=== PATIENT | female | born 1995 | race Caucasian/White ===

== ENCOUNTER 2021-01-16 10:30 | Emergency (ER) | payer BC, SELFPAY ==
[2021-01-16 10:37] VITALS: BP 120/71; PULSE 70; RESP 16; TEMP 36.5; O2SAT 100
--- NOTE | 2021-01-16 10:39 | ED.GENADULT ---
HPI - General Adult General Chief complaint: Urogenital-Female Stated complaint: pos yeast infection/anal itching Time Seen by Provider: 01/16/21 10:39 Source: patient Mode of arrival: ambulatory Limitations: no limitations History of Present Illness HPI narrative: 25-year-old female patient presents to the [facility] with complaints of vaginal and anal itching for the past 2 days. Patient states about 4 days she had some issues with diarrhea and started having anal itching after the diarrhea had resolved. Patient states that she is now having some vaginal itching along with the anal itching. Patient denies taking thing for her symptoms. Patient states she also noted a white discharge from the vaginal area today. Patient states that she is and in a monogamous relationship and has no concerns for STDs. Denies any pain with urination. Patient states she is currently on control and her last period was January 09. Related Data Home Medications Medication Instructions Recorded Confirmed norgestrel-ethinyl estradiol 1 tablet PO DAILY 01/16/21 01/16/21 [Lo-Ovral (28)] Allergies Allergy/AdvReac Type Severity Reaction Status Date / Time No Known Allergies Allergy Verified 01/16/21 10:45 Review of Systems Review of Systems: Narrative: CONSTITUTIONAL: Denies fever, chills, or sweats. EYES: Denies visual changes, redness, or discharge. ENT: Denies rhinorrhea, congestion, sore throat, or otalgia. CARDIOVASCULAR: Denies chest pain, palpitations, or edema. RESPIRATORY: Denies cough or dyspnea. GASTROINTESTINAL: Denies abdominal pain, nausea, vomiting, or diarrhea. GENITOURINARY: Denies dysuria or hematuria. SKIN: Denies rash positive vaginal and anal itching x2 days. MUSCULOSKELETAL: Denies back pain, joint pain, or myalgia. NEUROLOGIC: Denies headache, numbness, or weakness. PSYCHIATRIC: Denies anxiety or depression. PMFSH Social History Social History Gender identity (if verbalized by the patient): Female Comments At the time of my signature I agree with nursing past medical history, surgical, social, and family history. There is no relevant family history pertinent to the presenting complaint. Exam Narrative: Exam Narrative: GENERAL: Well-appearing, well-nourished, and in no acute distress. HEAD: Normocephalic, atraumatic. EYES: PERRLA and EOMI. ENT: Nares clear, no rhinorrhea or epistaxis. Mucous membranes moist. NECK: Supple. No lymphadenopathy CHEST: Clear to auscultation. No respiratory distress. HEART: Regular rate and rhythm. No murmur heard. Normal peripheral pulses. ABDOMEN: Soft, nontender, nondistended, normal active bowel sounds. No CVA tenderness on percussion. EXTREMITIES: Normal range of motion. No edema. SKIN: Warm, dry, no rash. NEURO: No focal deficits. Alert and oriented x3. Course Vital Signs Vital signs: Vital Signs Temperature 36.5 C 01/16/21 10:37 Pulse Rate 70 01/16/21 10:37 Respiratory Rate 16 01/16/21 10:37 Blood Pressure 120/71 01/16/21 10:37 Pulse Oximetry 100 01/16/21 10:37 Temperature 36.5 C 01/16/21 10:37 Pulse Rate 70 01/16/21 10:37 Respiratory Rate 16 01/16/21 10:37 Blood Pressure 120/71 01/16/21 10:37 Pulse Oximetry 100 01/16/21 10:37 Vital signs reviewed Medical Decision Making Differential Diagnosis Differential Diagnosis: Differential diagnosis: Uncomplicated lower UTI, uncomplicated UTI, pyelonephritis gonorrhea, chlamydia, Trichomonas, bacterial vaginosis, herpes, HIV, yeast infection, urinary tract infection. Cussed with patient we will go ahead and get a urine and check her urine for as well as a UTI. Discussed with her that based on her complaints I think this is most likely a fungal infection of the anus and vaginal area most likely caused by the diarrhea in which we can treat with oral antifungal. Patient verbalized understanding of this. Discussed kathy
== END 2021-01-16 11:05 | disposition home or self-care (01) ==
PROVIDERS: Emergency Provider Nurse Practitioner Family
DX: B37.3 Candidiasis of vulva and vagina (principal); B37.89 Other sites of candidiasis
CPT/HCPCS: 81003; 81025; 99213; G0463

== ENCOUNTER 2021-01-18 08:23 | Emergency (ER) | payer BC, SELFPAY ==
[2021-01-18 08:31] VITALS: BP 142/91; PULSE 85; RESP 20; TEMP 37.4; O2SAT 100
--- NOTE | 2021-01-18 08:57 | ED.SKABFB ---
HPI - Skin/Abscess/Foreign Bdy General Chief complaint: Skin/Abscess/Foreign Body Stated complaint: POSSIBLE ALLERGIC REACTION Source: patient Mode of arrival: ambulatory Limitations: no limitations History of Present Illness HPI narrative: Patient is a 25 year old female who presents complaining of possible allergic reaction to medication. Patient reports that she was seen and treated here on Saturday for a yeast infection . Patient reports taking Diflucan and using clotrimazole cream topically. She reports increased swelling and itching to vaginal area. She reports generalized pruritic rash with increased edema and erythema to face. She reports taking Benadryl last pm with moderate relief. Patient also reports possible exposure to poison luna over the weekend while golfing but reports she did not touch it . MD complaint: rash Related Data Home Medications Medication Instructions Recorded Confirmed norgestrel-ethinyl estradiol 1 tablet PO DAILY 01/16/21 01/16/21 [Lo-Ovral (28)] Allergies Allergy/AdvReac Type Severity Reaction Status Date / Time No Known Allergies Allergy Verified 01/16/21 10:45 Review of Systems Review of Systems: Narrative: CONSTITUTIONAL: Denies fever, chills, or sweats. EYES: Denies visual changes, redness, or discharge. ENT: Denies rhinorrhea, congestion, sore throat, or otalgia. CARDIOVASCULAR: Denies chest pain, palpitations, or edema. RESPIRATORY: Denies cough or dyspnea. GASTROINTESTINAL: Denies abdominal pain, nausea, vomiting, or diarrhea. GENITOURINARY: Denies dysuria or hematuria. SKIN: Reports rash or itching. MUSCULOSKELETAL: Denies back pain, joint pain, or myalgia. NEUROLOGIC: Denies headache, numbness, dizziness, or weakness. PSYCHIATRIC: Denies anxiety or depression. [facility] Past Medical History Medical History (Updated 01/18/21 @ 09:50 by VENTURA Mi) No significant past medical history Surgical History Surgical History (Updated 01/18/21 @ 09:50 by VENTURA Mi) No significant past surgical history Family History Family History (Updated 01/18/21 @ 09:51 by VENTURA Mi) Other No significant family history Social History Social History (Updated 01/18/21 @ 09:51 by VENTURA Mi) Smoking status: Never smoker Alcohol intake: current Alcohol use details: Occasional Substance use: never Living arrangements: with family Occupation/Education: occupation Gender identity (if verbalized by the patient): Female Comments At the time of signature, I have reviewed and agree with nursing past medical, surgical, social, and family history unless otherwise noted. Please see nursing chart for further information. There is no relevant family history pertinent to the presenting complaint. Exam Narrative: Exam Narrative: GENERAL: Well-appearing, well-nourished, and in no acute distress. HEAD: Normocephalic, atraumatic. EYES: EOMI. No redness or drainage. Conjunctiva are normal. ENT: Mucous membranes pink and moist. Throat normal. Uvula midline. NECK: AROM. Supple. No lymphadenopathy. CHEST: No respiratory distress. Clear to auscultation. HEART: Regular rate and rhythm. EXTREMITIES: Normal range of motion. SKIN: Erythema and edema noted to the face, urticaria to extremities NEURO: No focal deficits. Alert and oriented x3. Gait steady. PSYCH: Normal affect. No signs of depression or anxiety. Course Vital Signs Vital signs: Vital Signs Temperature 37.4 C 01/18/21 08:31 Pulse Rate 85 01/18/21 08:31 Respiratory Rate 20 01/18/21 08:31 Blood Pressure 142/91 H 01/18/21 08:31 Pulse Oximetry 100 01/18/21 08:31 Temperature 37.4 C 01/18/21 08:31 Pulse Rate 85 01/18/21 08:31 Respiratory Rate 20 01/18/21 08:31 Blood Pressure 142/91 H 01/18/21 08:31 Pulse Oximetry 100 01/18/21 08:31 Reviewed-patient is informed that they may have pre-hypertension or hypertension based on a blood pre
== END 2021-01-18 09:14 | disposition home or self-care (01) ==
PROVIDERS: Emergency Provider Nurse Practitioner
DX: L50.0 Allergic urticaria (principal); T37.8X5A Adverse effect of other specified systemic anti-infectives and antiparasitics, initial encounter
CPT/HCPCS: 99213; G0463

== ENCOUNTER 2021-10-07 10:10 | Emergency (ER) | payer BC, SELFPAY ==
[2021-10-07 11:26] VITALS: BP 106/66; PULSE 83; RESP 18; TEMP 36.2; O2SAT 100
--- NOTE | 2021-10-07 11:47 | ED.SKABFB ---
HPI - Skin/Abscess/Foreign Bdy General Chief complaint: Skin/Abscess/Foreign Body Stated complaint: rash Time Seen by Provider: 10/07/21 11:47 Source: patient and family Mode of arrival: ambulatory Limitations: no limitations History of Present Illness HPI narrative: Karina is a 26-year-old female patient who ambulated into the [facility]. Patient states she she noticed small sores on her upper arms and leg starting on September 30. Patient states she now has a reddened raised rash throughout her arms and legs legs that is spreading. Patient states that the small sores have purulent drainage. Denies any fever, chills, or any other symptoms. Patient states she is currently trying to get . Patient has no past medical history. Patient has been treating with IV rest at home without relief. MD complaint: rash and insect bite/sting Related Data Allergies Allergy/AdvReac Type Severity Reaction Status Date / Time No Known Allergies Allergy Verified 10/07/21 11:57 Review of Systems Review of Systems: CONSTITUTIONAL: Denies body aches, fever, chills, or sweats. EYES: Denies visual changes, redness, or discharge. ENT: Denies rhinorrhea, congestion, sore throat, or otalgia. CARDIOVASCULAR: Denies chest pain, palpitations, or edema. RESPIRATORY: Denies cough or dyspnea. GASTROINTESTINAL: Denies abdominal pain, nausea, vomiting, or diarrhea. GENITOURINARY: Denies dysuria or hematuria. SKIN: Rash on arms and legs. Small open bites on arms and neck MUSCULOSKELETAL: Denies back pain, joint pain, or myalgia. NEUROLOGIC: Denies headache, numbness, tingling, or weakness. PSYCH: Denies depression or anxiety. All systems reviewed & are unremarkable except as noted in HPI and below PMFSH Past Medical History Medical History No significant past medical history Surgical History Surgical History No significant past surgical history Family History Family History Other No significant family history Social History Social History Smoking status: Never smoker Alcohol intake: current Alcohol use details: Occasional Substance use: never Gender identity (if verbalized by the patient): Female Comments At time of signature, I have reviewed and agree with nursing past medical, surgical, social and family history unless otherwise noted. Please see nursing chart for further information. There is no relevant family history pertinent to the presenting complaint Exam Narrative: GENERAL: Well-appearing, well-nourished, and in no acute distress. HEAD: Normocephalic, atraumatic. EYES: EOMI. No redness or drainage. Conjunctivae normal. ENT: Mucous membranes pink and moist. Nares clear. No rhinorrhea. NECK: Normal AROM. Supple. No lymphadenopathy. CHEST: No respiratory distress. ABDOMEN: Soft, nontender, nondistended, normal active bowel sounds. MUSCULOSKELETAL: No bony tenderness. EXTREMITIES: Normal range of motion. No edema. SKIN: Warm, dry, Capillary refill normal. Normal skin turgor. Maculopapular rash scattered on bilateral arms neck chest and legs. Small open areas less than 0.5 cm on arms and neck, areas are erythemic with yellow drainage NEURO: No focal deficits. Alert and oriented x3. Gait steady. PSYCH: Normal affect. No signs of depression or anxiety. Course Course Emergency Course: Patient was evaluated. Rashes scattered throughout bilateral arms, neck, top of chest and legs. Several small open areas less than 0.5 cm that are erythemic, warm, with yellow drainage are noted. Patient will be treated with a Medrol Dosepak and Augmentin. Patient is trying to currently get . Level of Care: Express Care Visit Vital Signs Vital signs: Vital Signs Temperature 36.2 C L 10/07/
== END 2021-10-07 12:08 | disposition home or self-care (01) ==
PROVIDERS: Emergency Provider Nurse Practitioner Family
DX: S40.862A Insect bite (nonvenomous) of left upper arm, initial encounter (principal); S40.861A Insect bite (nonvenomous) of right upper arm, initial encounter; S10.96XA Insect bite of unspecified part of neck, initial encounter; S80.862A Insect bite (nonvenomous), left lower leg, initial encounter; S80.861A Insect bite (nonvenomous), right lower leg, initial encounter; W57.XXXA Bitten or stung by nonvenomous insect and other nonvenomous arthropods, initial encounter; L23.9 Allergic contact dermatitis, unspecified cause
CPT/HCPCS: 99213; G0463

== ENCOUNTER 2021-11-22 12:58 | Outpatient (CLI) | payer BC, SELFPAY ==
--- NOTE | ~2021-11-22 | US_ITS ---
EXAMINATION: US OB <=14 wk fetus w TV DATE: 11/22/2021 13:51 INDICATION: Gestational dating. TECHNIQUE: Real-time transabdominal and transvaginal obstetric ultrasound. FINDINGS: No prior studies for comparison. The uterus measures 9.4 x 7.9 x 9 cm.. There is an intrauterine gestational sac, with pole iden tified. The crown rump length measures 2.67 cm, which correlates with a estimated gestational age of 9 weeks 3 days. heart tones are identified measuring 165 bpm. Ovaries are within normal limi ts. No free fluid in the pelvis. IMPRESSION: 1. SL IUP with an EGA of 9 weeks, 3 days (EDC by current ultrasound of 06/24/2022). Reviewed, dictated and finalized at location B. N PICKER IMPRESSION: 1. SL IUP with an EGA of 9 weeks, 3 days (EDC by current ultrasound of 2).
== END 2021-11-22 12:59 | disposition home or self-care (01) ==
LOC: ANHIMG 13:02
PROVIDERS: PCP Obstetrics & Gynecology; Visit Provider Obstetrics & Gynecology
DX: O36.80X0 Pregnancy with inconclusive fetal viability, not applicable or unspecified (principal); Z3A.09 9 weeks gestation of pregnancy
CPT/HCPCS: 76801; 76817

== ENCOUNTER 2022-06-15 19:18 | Emergency (ER) | payer BC, SELFPAY ==
[2022-06-15 19:26] VITALS: BP 126/77; PULSE 67; RESP 18; TEMP 36.3; O2SAT 99
--- NOTE | 2022-06-15 19:27 | ED.FEMALEGU ---
HPI - Female Genitourinary General Chief complaint: Urogenital-Female Stated complaint: vaginal discharge Time Seen by Provider: 06/15/22 19:28 History of Present Illness HPI Narrative: Karina Su is a 26 yo female, , with PMH of vulvovaginal candidiasis, [facility] of [facility] itching she is 9 months and is due for delivery on 06/23. Itching started yesterday; saw her OB on the where exam documents no problems. Related Data Home Medications Medication Instructions Recorded Confirmed prenat.vits,karson,[id number] 1 tablet PO DAILY 11/16/21 06/15/22 Allergies Allergy/AdvReac Type Severity Reaction Status Date / Time aloe vera [From Vagisil] Allergy Swelling Verified 06/12/22 08:37 benzocaine [From Vagisil] Allergy Swelling Verified 06/12/22 08:37 fluconazole [From Diflucan] Allergy Swelling Verified 06/15/22 19:32 mineral oil [From Vagisil] Allergy Swelling Verified 06/12/22 08:37 resorcinol [From Vagisil] Allergy Swelling Verified 06/12/22 08:37 starch [From Vagisil] Allergy Swelling Verified 06/12/22 08:37 vitamin E (d-alpha Allergy Swelling Verified 06/12/22 08:37 tocopherol) [From Vagisil] vitamins A and D Allergy Swelling Verified 06/12/22 08:37 [From Vagisil] Azoles Allergy Intermediate Rash Uncoded 06/12/22 08:37 Review of Systems Review of Systems: CONSTITUTIONAL: Denies fever, chills, sweats. EYES: Denies visual changes, redness, discharge. ENT: Denies rhinorrhea, congestion, sore throat, otalgia. CARDIOVASCULAR: Denies chest pain, palpitations, edema. RESPIRATORY: Denies dyspnea, wheezing, cough GASTROINTESTINAL: Denies abdominal pain, nausea, vomiting, diarrhea. GENITOURINARY: Denies dysuria, hematuria, abnormal discharge- has vaginal itching/swelling; can't take most drugs for this condition SKIN: Denies rash or itching. NEUROLOGIC: Denies numbness, or focal weakness. PSYCHIATRIC: Denies anxiety or depression. Vaginal itching PMFSH Past Medical History Medical History No significant past medical history Surgical History Surgical History No significant past surgical history [place] teeth extracted Family History Family History Father Heart disease Heart attack Mother Crohn disease Other No significant family history Social History Social History Smoking status: Never smoker Alcohol intake: current Alcohol use details: Occasional Substance use: never Gender identity (if verbalized by the patient): Female Spiritual care concerns: No Comments At time of signature, I agree with nursing past medical, surgical, social and family history. There is no relevant family history pertinent to the presenting complaint. Exam Narrative: GENERAL: This is a well-nourished, well-developed patient, in mild distress. HEAD: normocephalic, atraumatic. EYES: . Sclera clear/white. Vision is grossly intact. EARS: External ears normal, . Hearing grossly intact. NOSE: External nose normal without nasal discharge, nares without redness, no rhinorrhea. THROAT: Mucous membranes moist, NECK: Neck supple, non-tender CARDIOVASCULAR: Regular rate and rhythm without murmurs, gallops, or rubs. RESPIRATORY: Clear to auscultation. Breath sounds equal bilaterally. No wheezes, rales, or rhonchi. GASTROINTESTINAL: Abdomen distended to appropriate level of SKIN: warm, intact with no suspicious lesions or rash, good texture and turgor. Complaining of vaginal itching NEURO: awake, alert, and oriented to person, place and time. There were no obvious focal neurologic abnormalities. Steady gait EXTREMITIES: Normal range of motion. BACK: Nontender without deformity Course Course Emergency Course: Patient who is 9 mon
== END 2022-06-15 19:46 | disposition home or self-care (01) ==
PROVIDERS: Emergency Provider Nurse Practitioner; PCP Obstetrics & Gynecology
DX: O98.813 Other maternal infectious and parasitic diseases complicating pregnancy, third trimester (principal); Z3A.00 Weeks of gestation of pregnancy not specified
CPT/HCPCS: 99213; G0463

== ENCOUNTER 2022-06-18 14:38 | Inpatient (IN) | payer BC, SELFPAY ==
[2022-06-18] VITALS (55 sets, daily range): BP systolic 83–200; BP diastolic 34–187; PULSE 63–102; TEMP 36.9; O2SAT 97–100; BMI 33.8
--- NOTE | 2022-06-18 15:44 | LDADM ---
This patient, Karina Su, was admitted to Labor/Delivery/Recovery 106 on 06/18/22 at 14:38. Plans for labor, pain management and were discussed with patient. Patient/family oriented to hospital policies and general routines including ID bracelet, bed and alarms, visiting hours, pain management, procedures, bathroom and other care routines, personal items, smoking policy, room service/diet and guest tray routines, security routines, and visiting hours. Patient/Family are encouraged to report perceived risks to care and to ask questions if they do not understand what they are told or what they should do. See OBIX for further documentation.
[2022-06-18 16:30] LABS: Basophils Percent Auto 0.1 % (0.2-1.2); Eosinophils Absolute Auto 0.1 K/mm3 (0-0.3); Eosinophils Percent Auto 1.1 % (0-4.4); Hematocrit 35.4 % (37.0-47.0); Hemoglobin 11.8 g/dL (12.0-15.0); Immature Granulocyte Absolute 0.04 K/mm3 (0.00-0.031); Immature Granulocyte Percent A 0.4 % (0-0.5); Lymphocytes Absolute Auto 2.21 K/mm3 (0.9-3.2); Lymphocytes Percent Auto 19.4 % (18.3-44.2); Mean Corpuscular HGB Conc 33.3 g/dl (32-36); Mean Corpuscular Hemoglobin 29.6 pg (26-34); Mean Corpuscular Volume 88.7 fl (80-100); Mean Platelet Volume 10.9 fl (7.4-10.4); Monocytes Absolute Auto 0.7 K/mm3 (0.1-0.6); Monocytes Percent Auto 6.2 % (2.6-8.5); Neutrophils Absolute Auto 8.3 K/mm3 (1.3-6.7); Neutrophils Percent Auto 72.8 % (45.5-73.1); Platelet Count Result 192 k/mm3 (150-375); Red Blood Count 3.99 M/mm3 (4.2-5.4); Red Cell Distribution Width 12.5 % (11.5-14.5); White Blood Count 11.4 K/mm3 (4.5-10.0)
--- NOTE | 2022-06-18 18:07 | WPDANESEPP ---
Anes - Eval Pre Procedure Procedure: labor epidural Date/Time: 06/18/22 18:07 Pre Op Diagnosis: Labor Patient Data Age: 26 Gender: F Height: 1.8 m Weight: 110 kg Last Vital Signs Temp 36.9 C 06/18/22 16:00 Pulse 73 06/18/22 16:02 BP 136/78 06/18/22 16:02 O2 Del Method Room Air 06/18/22 15:42 Allergies Allergy/AdvReac Type Severity Reaction Status Date / Time aloe vera [From Vagisil] Allergy Swelling Verified 06/12/22 08:37 benzocaine [From Vagisil] Allergy Swelling Verified 06/12/22 08:37 fluconazole [From Diflucan] Allergy Swelling Verified 06/15/22 19:32 mineral oil [From Vagisil] Allergy Swelling Verified 06/12/22 08:37 resorcinol [From Vagisil] Allergy Swelling Verified 06/12/22 08:37 starch [From Vagisil] Allergy Swelling Verified 06/12/22 08:37 vitamin E (d-alpha Allergy Swelling Verified 06/12/22 08:37 tocopherol) [From Vagisil] vitamins A and D Allergy Swelling Verified 06/12/22 08:37 [From Vagisil] Azoles Allergy Intermediate Rash Uncoded 06/12/22 08:37 Home Medications Medication Instructions Recorded Confirmed Type prenat.vits,karson,[id number] 1 tablet PO DAILY 11/16/21 06/15/22 History nystatin 100,000 unit/gram topical 1 applic topical BID #15 grams 06/15/22 Rx ointment Laboratory Tests 06/18/22 06/18/22 06/18/22 16:18 16:18 16:18 WBC 11.4 K/mm3 H K/mm3 (4.5-10.0) RBC 3.99 M/mm3 L M/mm3 (4.2-5.4) Hgb 11.8 g/dL L g/dL (12.0-15.0) Hct 35.4 % L % (37.0-47.0) MCV 88.7 fl fl (80-100) MCH 29.6 pg pg (26-34) MCHC 33.3 g/dl g/dl (32-36) RDW 12.5 % % (11.5-14.5) Plt Count 192 k/mm3 k/mm3 (150-375) MPV 10.9 fl H fl (7.4-10.4) Immature Gran % (Auto) 0.4 % % (0-0.5) Neut % (Auto) 72.8 % % (45.5-73.1) Lymph % (Auto) 19.4 % % (18.3-44.2) Lamar % (Auto) 6.2 % % (2.6-8.5) Eos % (Auto) 1.1 % % (0-4.4) Baso % (Auto) 0.1 % L % (0.2-1.2) Lymph # (Auto) 2.21 K/mm3 K/mm3 (0.9-3.2) Lamar # (Auto) 0.7 K/mm3 H K/mm3 (0.1-0.6) Eos # (Auto) 0.1 K/mm3 K/mm3 (0-0.3) Baso # (Auto) 0.0 K/mm3 K/mm3 (0.0-0.1) Abs Immat Gran (auto) 0.04 K/mm3 H K/mm3 (0.00-0.031) Absolute Neuts (auto) 8.3 K/mm3 H K/mm3 (1.3-6.7) Absolute Nucleated RBC 0.0 K/mm3 K/mm3 (0.0-0.012) Nucleated RBC % 0.0 % % (0.0-0.2) RPR Pending Blood Type A Positive Antibody Screen Negative Patient hx anesthesia problems: none Family hx anesthesia problems: none Results Review: All pre-operative results and documents have been reviewed as part of the pre-operative evaluation. [facility] Past Medical History Medical History No significant past medical history Surgical History Surgical History No significant past surgical history [place] teeth extracted Family History Family History Father Heart disease Heart attack Mother Crohn disease Other No significant family history Social History Social History Smoking status: Never smoker Alcohol intake: current Alcohol use details: Occasional Substance use: never Gender identity (if verbalized by the patient): Female Spiritual care concerns: No Comments review of allergies notes a benzocaine allergy, pt states that she is not allergic to the lashae just the yeast infection medication diflucan Exam Day of Procedure 06/18/22 18:07 Patient weight: obese Heart: regular rate and rhythm Lungs: clear to auscultation Airway: Mallampati scale class II Neurological: alert and oriented
[2022-06-18 19:56] LABS: Rubella IgG Antibody 12.5 IU/ML
[2022-06-18] MEDS: OXYTOCIN 30 UNITS/NS 500 ML 30 UNITS/500 ML BAG 6 UNITS IV CONT (20:06)
[2022-06-18] MEDS: LACTATED RINGERS 1,000 ML 125 ML IV CONT ×2 (20:07→22:14)
[2022-06-19] VITALS (71 sets, daily range): BP systolic 92–142; BP diastolic 51–114; PULSE 65–128; RESP 16–18; TEMP 36.3–37.3; O2SAT 86–100
--- NOTE | 2022-06-19 03:48 | PM.IMHP ---
H&P: HPI History of Present Illness Date/Time: 06/19/22 03:48 Chief Complaint: Leakage of fluid Narrative: Patient is a 26-year-old LMP 09/16/2022 currently 39 weeks 3 days gestation with LEONELA 06/23/2022 who presented to labor and delivery on 06/18/22 at 39w2d gestation with complaints of leakage of fluid. Patient is dated by LMP consistent with ultrasound on 11/22/2021 at 9 weeks gestation. At 12:50 p.m., patient reported leakage of clear fluid. Upon arrival to labor and delivery, patient was noted to be grossly ruptured. Patient denies any contractions or vaginal bleeding. Patient reported good movement. Review of Systems Review of Systems: All systems reviewed & are unremarkable except as noted in HPI and below Eyes: Eyes: Reports as per HPI and Reports no additional eye complaints ENT: Reports system reviewed and no additional complaints, except as documented and Reports as per HPI Cardiovascular: Cardiovascular: Reports as per HPI and Reports no additional cardiovascular complaints Respiratory: Respiratory: Reports as per HPI and Reports no additional respiratory complaints Gastrointestinal: Gastrointestinal: Reports as per HPI and Reports no additional gastrointestinal complaints Genitourinary: Genitourinary: Reports no additional female genitourinary complaints and Reports as per HPI Musculoskeletal: Musculoskeletal: Reports no additional musculoskeletal complaints and Reports as per HPI Integumentary/Breasts: Skin/Breast: Reports system reviewed and no additional complaints, except as docu and Reports as per HPI Neurologic: Reports system reviewed and no additional complaints, except as documented and Reports as per HPI Psychiatric: Psychiatric: Reports no additional psychiatric complaints and Reports as per HPI Endocrine: Endocrine: Reports no additional endocrine complaints and Reports as per HPI Hematologic/Lymphatic: Hematologic/Lymphatic: Reports no additional hematologic/lymphatic complaints and Reports as per HPI Allergic/Immunologic: Allergic/Immunologic: Reports no additional allergic/immunologic complaints and Reports as per HPI PMFSH Past Medical History Medical History No significant past medical history Surgical History Surgical History No significant past surgical history [place] teeth extracted Family History Family History Father Heart disease Heart attack Mother Crohn disease Other No significant family history Social History Social History Smoking status: Never smoker Alcohol intake: current Alcohol use details: Occasional Substance use: never Gender identity (if verbalized by the patient): Female Spiritual care concerns: No Meds Home Medications and Allergies Home Medications Medication Instructions Recorded Confirmed Type prenat.vits,karson,[id number] 1 tablet PO DAILY 11/16/21 06/18/22 History nystatin 100,000 unit/gram topical 1 applic topical BID #15 grams 06/15/22 06/18/22 Rx ointment Allergies Allergy/AdvReac Type Severity Reaction Status Date / Time aloe vera [From Vagisil] Allergy Swelling Verified 06/12/22 08:37 fluconazole [From Diflucan] Allergy Swelling Verified 06/15/22 19:32 mineral oil [From Vagisil] Allergy Swelling Verified 06/12/22 08:37 resorcinol [From Vagisil] Allergy Swelling Verified 06/12/22 08:37 starch [From Vagisil] Allergy Swelling Verified 06/12/22 08:37 vitamin E (d-alpha Allergy Swelling Verified 06/12/22 08:37 tocopherol) [From Vagisil] vitamins A and D Allergy Swelling Verified 06/12/22 08:37 [From Vagisil] Azoles Allergy Intermediate Rash Uncoded 06/12/22 08:37 Vital Signs Vital Signs - 24 hr 06/18/22 16:01 06/18/22 16:02 06/18/22 16:00 Temperature 36.9 C
--- NOTE | 2022-06-19 03:51 | PM.OBPRVD ---
OB - Delivery Note Procedure Procedure: Patient is now a 26-year-old who presented to labor and delivery during the afternoon of 06/18/2022 at 39 weeks 2 days gestation with complaints of leakage of fluid. Patient was noted to be grossly ruptured at time of presentation. She was admitted to labor and delivery. Initial cervical exam was 1 cm dilated. Induction labor was started with Pitocin. Pitocin was started slowly titrated throughout the remainder of the afternoon and evening. Patient became uncomfortable and requested an epidural for pain management which was placed without difficulty. Patient made progressive cervical change. Patient was noted to be fully dilated at 1:06 a.m. Patient was encouraged to push and found to be pushing well. She was prepped and draped for delivery. At 3:13 a.m., patient delivered infant head atraumatically and without difficulty in DIGNA presentation. Occiput restituted to maternal left side. With subsequent push, the 's neck, shoulders, and rest of body delivered without difficulty. Terminal meconium was noted. was placed on maternal abdomen where care was assumed by awaiting nursing staff. 's nose and mouth were suctioned with bulb suction. Delayed cord clamping was performed for approximately 60 seconds. Cord was clamped and cut. A segment of cord was collected for cord gases. Cord blood was collected. The placenta was delivered spontaneously and intact. Uterine fundus was noted be firm with massage. On inspection, a first-degree perineal laceration was noted. This laceration was repaired with 2-0 Vicryl in usual fashion. Excellent hemostasis was noted. Estimated blood loss for entire delivery was 200 cc. The was a live born female , Apgars 8 and 9, weighing 9 lbs. 9 oz. Both mother and baby doing well at end of delivery. Induction method: Per Pitocin Protocol Delivery monitor: External FHT and External Uterine Route of delivery: Laceration Description: Perineal - 1st Degree Delivery repair: vicryl (2-0 vicryl) Specimen: Yes (cord blood and cord gases) Quantitative Blood Loss (ml): 200 Anesthesia type: Epidural Disposition: Floor Complications: No immediate complications [place] Baby Date of : 06/19/22 Time of : 03:13 Weeks of gestation at delivery: 39 (39.3) gender: Female Weight (pounds): 9 Weight (ounces): 9 presentation: vertex position: Left Occiput Anterior Placenta delivery description: Spontaneous Cord Vessel Description: 3 Vessels and Delayed Cord Clamping (x60s) score one minute: 8 score five minutes: 9 AMG Delivery Billing Delivery Delivery: Delivery Charge
[2022-06-19] MEDS: OXYTOCIN 30 UNITS/NS 500 ML 30 UNITS/500 ML BAG 125 UNITS IV CONT (04:07)
--- NOTE | 2022-06-19 06:00 | PC.NURSE ---
Patient transferred to post room #292 via w/c. Support person present. Oriented to unit, room, information board, rooming in, admission packet and security measures. Patient verbalizes understanding.
[2022-06-19] MEDS: ONDANSETRON INJ 4 MG/2 ML VIAL IV PUSH (06:16)
[2022-06-19] MEDS: IBUPROFEN 600 MG TABLET PO (08:34)
[2022-06-19] MEDS: MULTIVIT/MIN/PREN/FOL AC/IRON TABLET 1 TAB PO (08:35)
[2022-06-19] MEDS: DOCUSATE SODIUM 100 MG CAPSULE PO (08:35)
[2022-06-19 10:39] LABS: Rapid Plasma Reagin Non-Reactive (NonReactive)
--- NOTE | 2022-06-19 16:08 | PC.NURSE ---
[id number] Introductions were made, then consulted with patient to assess needs related to . Mother led the conversation with her?plans to feed?her infant and the?experience so far. Resources provided for inpatient and outpatient services using a resource guide and mom/baby guide. Mother voiced understanding of information and request assistance. Mother works well with her infant with encouragement and education. Encouraged understanding of the benefits of skin to skin (unwrapping infant and placing vertically on her chest), responsive feeding and how to watch for early feeding signs, frequency of feeding on demand about every 8-12 times in 24 hours (every 2-3 hours), milk production, hand expression with clean hand, signs of adequate intake/output and how to record on the feeding sheet. Discussed the risk and benefits of using a nipple shield and pumping. Mother has brought in several nipple arvizu, flanges, and her own pump from home. Mother states her is latching to the right breast but not the left. her nipples are small, shallow, and left is smoother than the right. Reviewed positioning and ear, shoulder, hip alignment, supporting the breast, asymmetrical latch (off-center), and leading with the chin with a big open side gape. attempts to latch optimally to the breast in football position but is unable to maintain. Several attempts are made with and without the nipple shield. Nipple care reviewed with optimal latch and good positioning. Reviewed good handwashing when or touching the breast/nipples to prevent infection. Resources used to facilitate learning were used with the tool and mom and baby guide. Mother voiced understanding of responsive feedings, stimulating with skin to skin, hand expressed colostrum, touch, talking to infant to encourage if it has been 2 -3 hours since the start of the last , to call if does not latch or there is discomfort with . Reported to the primary RN. [id number] [phone] [id number] Consulted mother for assistance. Mother states she breastfed her on the right breast and used the nipple shield on the left on her own. The right nipple is has a discolored vertical line in the middle of the nipple. Reviewed milk production and non-optimal latching. Discussed the risk and benefits of pumping, nipple shield use, and mother has made the decision to pump. Breast pump provided due to ineffective . Instructions given on cleaning, care, usage, that there should be no pain, pumping schedule for milk production, collection, and storage of human milk. Parents are encouraged to record pumping schedule on the feeding sheet. Patient was assessed for correct placement, flange size (used 21mm and recommended to mother to consider a better fitting flange however discussed the risk with using non-Medela parts with a Medela pump, to pump for comfort and nipple stretching/stimulation for adequate milk production every 3 hours (8 times in 24 hours) 1-2 times at night. Mother voiced understanding of the education shared along with mom and baby guide for additional resource information. Reported to the primary RN.
[2022-06-20 05:09] LABS: Hematocrit 31.4 % (37.0-47.0); Hemoglobin 10.4 g/dL (12.0-15.0)
[2022-06-20] MEDS: MULTIVIT/MIN/PREN/FOL AC/IRON TABLET 1 TAB PO (07:08)
[2022-06-20] MEDS: IBUPROFEN 600 MG TABLET PO ×2 (07:08→20:30)
[2022-06-20] MEDS: DOCUSATE SODIUM 100 MG CAPSULE PO (07:17)
[2022-06-20 07:38] VITALS: BP 114/70; PULSE 65; RESP 16; TEMP 36.4; O2SAT 99
--- NOTE | 2022-06-20 08:35 | PM.OBPNVD ---
OB - PN: Subj Subjective Date/time seen: 06/20/22 08:35 Interval history: She states not significant relief of perineal pain from motrin or tylenol. Patient comments: tolerating diet and other (Decreasing lochia.) baby status: doing well and nursing well [place] feeding status: exclusively breast feeding OB - PN: Obj Data Labs CBC & Chem 7: 06/20/22 04:33 Labs: Laboratory Results - last 24 hr 06/18/22 06/20/22 16:18 04:33 Hgb 10.4 L Hct 31.4 L RPR Non-reactive OB - PN A/P Assessment and Plan (1) Vaginal delivery: Code(s): O80 - Encounter for full-term uncomplicated delivery Status: Acute Assessment and Plan: Doing well. Routine care. Trial of hydrocodone for pain. Plan day: 1 Plan: routine care Comments: Patient doing well. Time Spent With Patient Time: Total time spent is greater than 50% in coordination of care (as documented) at patient's floor/unit and/or counseling patient: Exam Psych: Affect: normal affect Other: Abd: fundus firm below umbilicus, nontender Perineum: mild swelling no signs of infection or hematoma Ext: nontender
--- NOTE | 2022-06-20 09:17 | WPDANLDPN2 ---
Anes-Prog Note L&D Date/Time: 06/20/22 09:17 Comfortable throughout: labor and delivery Neuraxial method: epidural Epidural/Spinal procedure site: clean & non-tender Neuro status: Neuro function grossly intact. Cardiovascular status: normal Respiratory status: normal Airway patency: baseline Mental status: baseline Post-Op hydration status: normal Vital Signs: Last Vital Signs Temp 97.6 F 06/20/22 07:38 Pulse 65 06/20/22 07:38 Resp 16 06/20/22 07:38 BP 114/70 06/20/22 07:38 Pulse Ox 99 06/20/22 07:38 O2 Del Method Room Air 06/19/22 12:00 Pain score (VAS): 0 I/O: Intake & Output 06/19/22 06/20/22 06/20/22 23:59 07:59 15:59 Intake Total 500 Balance 500 Post-procedural complaints: none Patient feedback: Patient satisfied with anesthetic care.
--- NOTE | 2022-06-20 16:29 | PC.NURSE ---
[id number] Mother is pumping with her personal Motiff pump from home. is brought into the room at the end of the pumping session. With left nipple stimulated, everted and firm RN suggests attempting to latch infant to the breast. Mother works well with her infant. Reviewed positioning and ear, shoulder, hip alignment, supporting the breast, asymmetrical latch (off-center), and leading with the chin with a big open side gape. latched optimally to the left breast in football position. Education given to mother of how to visualize suck/swallow ratios and listening for drinking at the breast. was able to maintain latch without discomfort to mother. Nipple care reviewed with optimal latch and good positioning. Reminding mother of comfort measures of healing with a warm and wet washcloth to rinse breast, then leave open to air-dry as needed. Reviewed good handwashing when , touching the breast/nipples to prevent infection, and reviewing how to prevent and treat engorgement. Mother voiced understanding of the information, to call for assistance if doesn't wake to breastfeed, if it is painful to breastfeed, or if she has concerns or questions. Reported to the Primary RN.
[2022-06-20 20:20] VITALS: BP 130/92; PULSE 89; RESP 16; TEMP 35.8; O2SAT 100
--- NOTE | 2022-06-21 07:00 | PC.NURSE ---
Pt introductions made and plan of care discussed per post , pain management, breast feeding, daily care activities and pending discharge to home. PT and spouse both recipients of such instructions and no barriers to learning identified at this time. PT received this shift instructions per one to one discussion, mom baby care guide and demonstrations. Pt verbalized understanding of such care.
[2022-06-21 08:15] VITALS: BP 122/80; PULSE 71; RESP 18; TEMP 36.4; O2SAT 99
--- NOTE | 2022-06-21 08:43 | PM.OBPNVD ---
OB - PN: Subj Subjective Date/time seen: 06/21/22 08:43 Interval history: Blood pressure this morning 122/82. She denies any headaches spots in vision or right upper quadrant pain. Patient comments: pain well controlled ( With Motrin.), tolerating diet and other (Decreasing lochia.) baby status: doing well and nursing well [place] feeding status: exclusively breast feeding OB - PN: Obj Data Labs CBC & Chem 7: 06/20/22 04:33 OB - PN A/P Plan day: 2 Plan: discharge home and other Comments: Patient doing well. Follow up 4-6 weeks. Discharge instructions provided. Time Spent With Patient Time: Total time spent is greater than 50% in coordination of care (as documented) at patient's floor/unit and/or counseling patient: Time with patient: less than 15 minutes Exam Psych: Affect: normal affect Other: Abd: fundus firm below umbilicus, nontender Perineum: healing Ext: nontender
[2022-06-21 11:00] VITALS: PULSE 71; RESP 18; O2SAT 99
[2022-06-21] MEDS: DOCUSATE SODIUM 100 MG CAPSULE PO (11:01)
[2022-06-21] MEDS: MULTIVIT/MIN/PREN/FOL AC/IRON TABLET 1 TAB PO (11:02)
[2022-06-21] MEDS: ACETAMINOPHEN 325 MG TABLET 650 MG PO (11:02)
[2022-06-21] MEDS: IBUPROFEN 600 MG TABLET PO (11:02)
--- NOTE | 2022-06-21 12:37 | PC.NURSE ---
1222 - Mother led the conversation with her experience and plan to feed her so far and her ability to independently latch optimally without discomfort, continue with the plan of , pumping, supplementing with syringe fed breastmilk to feed infant. Mother states her cluster fed last night and she allowed her to breastfeed for 60 minutes X3 and now today she is sore. Mother is feeding appropriately for growth of infant and understands stimulating to eat if needed. has had appropriate feedings in the last 24 hours meets the outcomes for weight, output and jaundice at this time. Mother states she is confident to continue to breastfeed/pump/supplement her infant at home or when to call for assistance and denies any additional assistance or education at this time. Reinforced understanding of milk production, transition of milk, signs of adequate intake, prevention/relief of engorgement, responsive after visualizing feeding cues, the different methods of stimulating to breastfeed 2-3 hours after the start of the last feeding, community resources, medication information reviewed per [facility] and when to call a provider using the resource of the mom and baby guide/[facility] website. Mother voiced understanding of the education shared. Reported to the primary RN.
--- NOTE | 2022-06-21 13:05 | PC.NURSE ---
Addendum entered by Rome Beaulieu RN 06/21/22 20:01: actual time of discharge teaching was 1230 Original Note: PT received discharge instructions per protocol and verbalized understanding of such care.
--- NOTE | 2022-06-21 13:05 | PC.NURSE ---
PT discharged to home ambulatory accompanied by both spouse and infant to waiting car. Follow up appts confirmed
[2022-06-22 08:54] VITALS: BP 123/80; PULSE 90; RESP 20; TEMP 36.7; O2SAT 99
--- NOTE | 2022-07-18 23:22 | PM.OBDSVD ---
DS: Admitting Diagnosis Discharge Date 06/21/22 Admitting Diagnosis premature rupture of membranes DS: Discharge Diagnosis Discharge Diagnosis (1) PROM (premature rupture of membranes): Code(s): O42.90 - Premature rupture of membranes, unspecified as to length of time between rupture and onset of labor, unspecified weeks of gestation Status: Acute (2) Vaginal delivery: Code(s): O80 - Encounter for full-term uncomplicated delivery Status: Acute OB - DS: Summary Hospital Course Hospital Course: Patient admitted with rupture of membranes. Pitocin initiated to augment labor. She had an uncomplicated vaginal delivery. she did well. Tolerated regular diet and had adequate pain control. OB Procedures : Ultrasound OB Procedures Intrapartum: Spontaneous Vag Delivery OB Procedures: : None Peripartum Data Infant Delivery Method: Natural Vaginal Laceration Description: Perineal - 1st Degree complications: none Status at Discharge Functional status at discharge: independent ambulation Time Spent with Patient Time attestation: Total time spent providing and/or coordinating discharge services: Exam Const: General: cooperative Orientation/consciousness: oriented to person, oriented to place and oriented to time HENMT: Face/Nose/Sinus: Normal external nose present Eyes: General: appearance normal, both eyes and all related structures Resp: Effort & Inspection: normal respiratory effort GI: Inspection: normal to inspection Skin: General skin exam: normal color Neuro: General: oriented to person, oriented to place and oriented to time Extrem: General: normal to inspection and no calf tenderness Psych: Appearance: grossly normal Mental Status: mental status grossly normal Discharge Plan Discharge Attending physician on discharge: Shakeel Winston Consulting providers: Jayne Ferreira ; Sarika Crystal ; Sherice Tam Discharging Clinician: Shakeel Winston Anticipated Discharge Date/Time: 06/21/22 08:44 Patient Disposition: Home, Self-Care Activity: may shower, no straining and pelvic rest Diet: regular Discharge Instructions: Education: Mom and Baby Guide Given to: Mother Follow-Up: Call your delivering provider's office for an appointment to be seen in: 4 Weeks Mom and baby should come to the [facility] for the follow-up appointment. Appointment Date/Time: June 22, 2022 at 9:00 am What to expect at your follow-up visit: Blood Pressure Check Call [phone] if you are unable to keep your appointment time. BREAST CARE: * Wear a snug supportive bra. * For engorgement discomfort: Breast Feeding: * Apply warm moist washcloths * Express milk as needed to relieve engorgement * Wear loose clothing Bottle Feeding: * May apply ice packs * For sore nipples: * Identify correct latch-on * Apply warm moist washcloths before and after nursing * Air dry nipples after nursing * May apply Lansinoh cream to nipples /PERINEAL CARE: * Until bleeding stops, use your shen bottle after urinating * Change your pad frequently throughout the day * You may take sitz baths several times a day (fill your bathtub with warm water and soak for 20 minutes.) Do NOT bathe in the water * No tub baths until seen by your physician - You may shower ACTIVITY: * Rest as much as possible. * Do not exercise or lift anything heavier than your baby (such as laundry or other children.) * Avoid stairs or driving as much as possible. * Do not put anything into the vagina. No douching, tampons, or sexual activity until seen by physician. NOTIFY PHYSICIAN IF YOU HAVE ANY QUESTIONS OR IF ANY OF THE FOLLOWING SYMPTOMS OCCUR: * If your perineum becomes red, swollen, or more painful than what you have experienced in the hospital. * I
== END 2022-06-21 13:05 | disposition home or self-care (01) | DRG 807 ==
LOC: ANHLDR 15:03 → ANHOB2 06-19 06:06
PROVIDERS: Student in an Organized Health Care Education/Training Program; Admitting Provider Obstetrics & Gynecology; Visit Provider Obstetrics & Gynecology
DX: O42.92 Full-term premature rupture of membranes, unspecified as to length of time between rupture and onset of labor (principal); Z37.0 Single live birth; O70.0 First degree perineal laceration during delivery; O13.4 Gestational [pregnancy-induced] hypertension without significant proteinuria, complicating childbirth; Z3A.39 39 weeks gestation of pregnancy
CPT/HCPCS: 36415; 84112; 85014; 85018; 85025; 86592; 86762; 86850; 86900; 86901; 99213; A9270; G0463; J2405; J2590; J2795; J7120

== ENCOUNTER 2022-12-18 13:53 | Emergency (ER) | payer BC, SELFPAY ==
[2022-12-18 13:59] VITALS: BP 99/64; PULSE 114; RESP 16; TEMP 37.5; O2SAT 98
--- NOTE | 2022-12-18 14:02 | ED.URI ---
HPI - URI/Sore Throat General Chief Complaint: Upper Respiratory Infection Stated Complaint: head and bodyache,dizziness Time Seen by Provider: 12/18/22 14:03 History of Present Illness HPI Narrative: 27-year-old female presented for complaint of sore throat, body aches, headache, and fever since yesterday. Temperature up to 100 today. She has taken Tylenol and endorses she starting to feel sweaty. She denies associated nausea, vomiting, diarrhea, shortness of breath or wheezing. She denies known sick contacts. She is not taking anything in addition to Tylenol for her symptoms. Currently . Related Data Allergies Allergy/AdvReac Type Severity Reaction Status Date / Time aloe vera [From Vagisil] AdvReac Intermediate Swelling Verified 12/18/22 13:57 fluconazole [From Diflucan] AdvReac Intermediate Swelling Verified 12/18/22 13:57 mineral oil [From Vagisil] AdvReac Intermediate Swelling Verified 12/18/22 13:57 resorcinol [From Vagisil] AdvReac Intermediate Swelling Verified 12/18/22 13:57 starch [From Vagisil] AdvReac Intermediate Swelling Verified 12/18/22 13:57 vitamin E (d-alpha AdvReac Intermediate Swelling Verified 12/18/22 13:57 tocopherol) [From Vagisil] vitamins A and D AdvReac Intermediate Swelling Verified 12/18/22 13:57 [From Vagisil] Azoles AdvReac Mild Rash Uncoded 12/18/22 13:57 Review of Systems Review of Systems: CONSTITUTIONAL: Reports body aches, fever, chills, or sweats. EYES: Denies visual changes, redness, or discharge. ENT: Denies rhinorrhea, congestion, or otalgia. CARDIOVASCULAR: Denies chest pain, palpitations, or edema. RESPIRATORY: Denies dyspnea. GASTROINTESTINAL: Denies abdominal pain, nausea, vomiting, or diarrhea. SKIN: Denies rash, itching, or wounds. MUSCULOSKELETAL: Denies back pain, joint pain PMFSH Past Medical History Medical History No significant past medical history Surgical History Surgical History No significant past surgical history [place] teeth extracted Family History Family History Father Heart disease Heart attack Mother Crohn disease Other No significant family history Social History Social History Smoking status: Never smoker Alcohol intake: current Alcohol use details: Occasional Substance use: never Living arrangements: with family Occupation/Education: occupation Gender identity (if verbalized by the patient): Female Spiritual care concerns: No Exam Narrative: GENERAL: Ill-appearing, no acute distress. EYES: conjunctivae clear ENT: Mucous membranes moist. TM pearly chung with normal light reflex bilaterally; no tragal tenderness. Oropharynx erythematous; Tonsils enlarged with exudate. No drooling, no hoarseness, no trismus, uvula midline. No tripod positioning, hot potato voice, or soft palate swelling. NECK: Supple. No lymphadenopathy CHEST: Clear to auscultation, breath sounds equal. No respiratory distress, speaks in full sentences. HEART: Regular rate and rhythm. No murmur heard. SKIN: Warm, dry, no rash. NEURO: Alert and oriented x3. Course Course Emergency Course: Patient is aware of diagnosis, understands and agrees to treatment plan. Anticipatory guidance given. Patient agrees to follow-up as directed and is aware of reasons to seek care at the emergency department. Portions of this record may have been created with voice recognition software Level of Care: Express Care Visit Vital Signs Vital signs: Vital Signs Temperature 99.5 F 12/18/22 13:59 Pulse Rate 114 H 12/18/22 13:59 Respiratory Rate 16 12/18/22 13:59 Blood Pressure 99/64 L 12/18/22 13:59 Pulse Oximetry 98 12/18/22 13:59 Oxygen Delivery Room Air 12/18/22 13:59 Temperature
== END 2022-12-18 14:22 | disposition home or self-care (01) ==
PROVIDERS: Emergency Provider Nurse Practitioner Family
DX: J02.0 Streptococcal pharyngitis (principal)
CPT/HCPCS: 87804; 87880; 99213; G0463

== ENCOUNTER 2024-03-22 12:31 | Observation (INO) | payer BC, SELFPAY ==
[2024-03-22] VITALS (17 sets, daily range): BP systolic 115–131; BP diastolic 65–77; PULSE 63–76; RESP 16–18; TEMP 36.7; O2SAT 89–100
--- NOTE | ~2024-03-22 | US_ITS ---
EXAMINATION: US OB BPP wo non-stress DATE: 03/22/2024 16:37 INDICATION: Bradycardia. Third trimester. TECHNIQUE: Real-time pelvic ultrasound was performed. COMPARISON: Ultrasound 03/11/2024, 09/25/2023 FINDINGS: There is a single living fetus in vertex presentation. The placenta is fundal. heart rate is 1 09 beats per minute (bpm). The amniotic fluid index is 12.6 cm which is normal. Biophysical profile performed by the technologist: breathing (30 sec sustained breathing in 30 minutes): 2 out of 2 movement (3 gross body movements in 30 minutes): 2 out of 2 tone (one episode of byhnngn-wasovmdhm-mkgpotr limb movement): 2 out of 2 Amniotic fluid pocket (2 cm): 2 out of 2 Total score: 8 out of 8 IMPRESSION: 1. Single living fetus in vertex presentation. 2. Biophysical profile 8 out of 8. Reviewed, dictated and finalized at location E.
[2024-03-22 13:40] LABS: Basophils Percent Auto 0.3 % (0.2-1.2); Eosinophils Percent Auto 0.4 % (0-4.4); Hematocrit 34.6 % (37.0-47.0); Hemoglobin 11.5 g/dL (12.0-15.0); Immature Granulocyte Absolute 0.04 K/mm3 (0.00-0.031); Immature Granulocyte Percent A 0.4 % (0-0.5); Lymphocytes Absolute Auto 1.73 K/mm3 (0.9-3.2); Lymphocytes Percent Auto 16.9 % (18.3-44.2); Mean Corpuscular HGB Conc 33.2 g/dl (32-36); Mean Corpuscular Hemoglobin 30.2 pg (26-34); Mean Corpuscular Volume 90.8 fl (80-100); Mean Platelet Volume 9.7 fl (7.4-10.4); Monocytes Absolute Auto 0.4 K/mm3 (0.1-0.6); Monocytes Percent Auto 4.3 % (2.6-8.5); Neutrophils Percent Auto 77.7 % (45.5-73.1); Platelet Count Result 206 k/mm3 (150-375); Red Blood Count 3.81 M/mm3 (4.2-5.4); Red Cell Distribution Width 12.4 % (11.5-14.5); White Blood Count 10.2 K/mm3 (4.5-10.0)
--- NOTE | 2024-03-22 13:40 | ED.ABDPAIN ---
HPI - Abdominal Pain General Chief Complaint: Abdominal Pain Stated Complaint: abd pain Time Seen by Provider: 03/22/24 13:21 History of Present Illness HPI narrative: 28-year-old female present to the emergency department for evaluation for epigastric pain. Patient is approximately 36 weeks . Patient states while she was at lunch she had onset of epigastric pain. This led to nausea and vomiting. Patient states she has had had no lower abdominal pain, states she has started for the baby moving denies any uterine cramping or vaginal bleeding. Patient states this is her 2nd but denies any prior issues with her gallbladder. Patient reported epigastric pain but no pain to the left or right upper quadrants. Patient is resting comfortably at time of evaluation pain Related Data Home Medications Medication Instructions Recorded Confirmed vits no.126-ferrous fum tablet PO 09/09/23 03/10/24 28 mg iron-folic acid 800 mcg tablet (Classic ) Allergies Allergy/AdvReac Type Severity Reaction Status Date / Time aloe vera [From Vagisil] AdvReac Intermediate Swelling Verified 03/10/24 09:18 fluconazole [From Diflucan] AdvReac Intermediate Swelling Verified 03/10/24 09:18 mineral oil [From Vagisil] AdvReac Intermediate Swelling Verified 03/10/24 09:18 resorcinol [From Vagisil] AdvReac Intermediate Swelling Verified 03/10/24 09:18 starch [From Vagisil] AdvReac Intermediate Swelling Verified 03/10/24 09:18 vitamin E (d-alpha AdvReac Intermediate Swelling Verified 03/10/24 09:18 tocopherol) [From Vagisil] vitamins A and D AdvReac Intermediate Swelling Verified 03/10/24 09:18 [From Vagisil] Azoles AdvReac Mild Rash Uncoded 03/10/24 09:18 Review of Systems Review of Systems: All systems reviewed & are unremarkable except as noted in HPI and below PMFSH Past Medical History Medical History No significant past medical history Suppression of menses Surgical History Surgical History No significant past surgical history [place] teeth extracted Family History Family History Father Heart disease Heart attack Mother Crohn disease Other No significant family history Social History Social History Smoking status: Never smoker Alcohol intake: current Alcohol use details: Occasional Substance use: never Lack of Transportation: No Lack of Food: Never True Current Housing: I Have Housing Concerned About Future Housing: No Difficulty Paying Gas/Electric Bills: No Difficulty Paying for Meds: No Currently Unemployed: No Education: Bachelor's Degree Difficulty w/ Childcare or Family Care: No Living arrangements: with family Occupation/Education: occupation Gender identity (if verbalized by the patient): Female Spiritual care concerns: No Exam Narrative: APPEARANCE: Well appearing, no pain, no distress, well-nourished. HEAD: normocephalic, atraumatic. EYES: PERRLA/EOMI, conjunctivae clear. NOSE: Normal no drainage EARS:TMS clear with good light reflex. THROAT: Pharynx clear, no exudate. NECK: Supple. No adenopathy, no masses. RESPIRATORY: Airway patent, respirations nonlabored. Clear to auscultation bilaterally, no rales, rhonchi, wheezing. CARDIOVASCULAR: Regular rate and rhythm without murmurs rubs or gallops. ABDOMINAL: Gravid abdomen with no lower abdominal tenderness, epigastric tenderness to palpation with no right upper quadrant tenderness to palpation MUSCULOSKELETAL: Moves all extremities. Strength/ROM intact, No edema, No calf tenderness. NEURO: Alert. Cranial nerves II through XII intact. Good gait. Good coordination SKIN: Warm, dry. Normal Color Course Vital Signs Vital signs: Vital Signs Temperature 98.1 F
[2024-03-22 13:49] LABS: Alanine Aminotransferase 12 U/L (6-35); Albumin Level 3.9 g/dL (3.5-5.1); Alkaline Phosphatase 83 U/L (38-126); Anion Gap 6 mmol/L (4-12); Aspartate Amino Transferase 18 U/L (14-36); Bilirubin,Total 0.4 mg/dL (0.2-1.3); Blood Urea Nitrogen 7 mg/dL (7-17); Calcium 8.9 mg/dL (8.4-10.2); Carbon Dioxide 23 mmol/L (22-30); Chloride 105 mmol/L (98-107); Estimated CRCL calculation 158 ml/min; Estimated Glomerular Filt Rate > 60; Glucose 80 mg/dL (65-110); Lipase 43 U/L (23-300); Potassium 3.9 mmol/L (3.4-5.0); Prothrombin Time 13.2 Seconds (11.1-14.7); Sodium 134 mmol/L (137-145)
[2024-03-22 13:50] LABS: Partial Thromboplastin Time 22.3 Seconds (22.3-36.8)
[2024-03-22] MEDS: BELLADONNA ALK/PHENOB ELIX 10 ML, MAG HYDROX/ALUMINUM HYD/SIMETH 30 ML, LIDOCAINE HCL 2... PO (14:07)
--- NOTE | 2024-03-22 14:12 | PC.NURSE ---
pt going to OB and OB RN stated the patient didn't need the fluid bolus started. charted against in the MAR and patient is discharging over to the [facility]
[2024-03-22] MEDS: ONDANSETRON INJ 4 MG/2 ML VIAL IV PUSH (14:14)
--- NOTE | 2024-03-22 14:23 | OBADM ---
This patient, Karina Su, admitted to the OB room OB Post 115 for observation. this pt was brought from ED for extended monitoring for indeterminant baseline tracing. Patient/family oriented to hospital policies and general routines including ID bracelet, bed and alarms, visiting hours, pain management, procedures, bathroom and other care routines, personal items, smoking policy, room service/diet, and visiting hours. Patient/Family are encouraged to report perceived risks to care and to ask questions if they do not understand what they are told or what they should do.
--- NOTE | 2024-03-22 14:28 | PC.NURSE ---
patient has IV intact and OB staff requested it stay intact for them to take her to [facility]
[2024-03-22 15:28] LABS: Uric Acid 3.6 mg/dL (2.5-7.5)
--- NOTE | 2024-03-22 16:48 | PM.OBTRLD ---
OB - Triage/Final Diagnosis Visit Information Date of evaluation: 03/22/24 Reason for evaluation: threatened labor Comments/Additional reasons for admission: I have assessed the risk for this patient, Karina Su, and determined that she would benefit from observation care. Evaluation Laboratory results: Laboratory Tests 03/22/24 13:34 WBC 10.2 H RBC 3.81 L Hgb 11.5 L Hct 34.6 L MCV 90.8 MCH 30.2 MCHC 33.2 RDW 12.4 Plt Count 206 MPV 9.7 Immature Gran % (Auto) 0.4 Neut % (Auto) 77.7 H Lymph % (Auto) 16.9 L [place] % (Auto) 4.3 Eos % (Auto) 0.4 Baso % (Auto) 0.3 Lymph # (Auto) 1.73 [place] # (Auto) 0.4 Eos # (Auto) 0.0 Baso # (Auto) 0.0 Abs Immat Gran (auto) 0.04 H Absolute Neuts (auto) 8.0 H Absolute Nucleated RBC 0.000 Nucleated RBC % 0.0 PT 13.2 INR 1.0 APTT 22.3 Sodium 134 L Potassium 3.9 Chloride 105 Carbon Dioxide 23 Anion Gap 6 BUN 7 Creatinine 0.60 L Estim Creat Clear Calc 158 Estimated GFR > 60 Glucose 80 Uric Acid 3.6 Calcium 8.9 Total Bilirubin 0.4 AST 18 ALT 12 Alkaline Phosphatase 83 Total Protein 7.0 Albumin 3.9 Lipase 43 Vital signs: Vital Signs - 24 hr 03/22/24 12:35 03/22/24 12:48 03/22/24 14:15 Temperature 98.1 F Pulse Rate 76 73 71 Respiratory Rate 16 18 Blood Pressure 116/65 115/77 Blood Pressure [Right Arm] 116/69 Pulse Oximetry 100 100 Oxygen Delivery 03/22/24 14:46 03/22/24 14:49 03/22/24 14:54 Temperature Pulse Rate 65 Respiratory Rate Blood Pressure 131/70 Blood Pressure [Right Arm] Pulse Oximetry 100 100 Oxygen Delivery 03/22/24 14:59 03/22/24 15:00 03/22/24 15:04 Temperature Pulse Rate 65 Respiratory Rate Blood Pressure 122/71 Blood Pressure [Right Arm] Pulse Oximetry 100 100 Oxygen Delivery 03/22/24 15:09 03/22/24 15:14 03/22/24 15:19 Temperature Pulse Rate Respiratory Rate Blood Pressure Blood Pressure [Right Arm] Pulse Oximetry 94 89 L 90 Oxygen Delivery 03/22/24 15:24 03/22/24 15:33 03/22/24 15:38 Temperature Pulse Rate Respiratory Rate Blood Pressure Blood Pressure [Right Arm] Pulse Oximetry 93 100 100 Oxygen Delivery 03/22/24 15:43 03/22/24 15:48 03/22/24 15:08 Temperature Pulse Rate Respiratory Rate Blood Pressure Blood Pressure [Right Arm] Pulse Oximetry 97 100 Oxygen Delivery Room Air
== END 2024-03-22 17:42 | disposition home or self-care (01) ==
LOC: ANHED 14:14 → ANHOBPP 14:53
PROVIDERS: Admitting Provider Student in an Organized Health Care Education/Training Program; Emergency Provider Emergency Medicine; Visit Provider Obstetrics & Gynecology
DX: O47.03 False labor before 37 completed weeks of gestation, third trimester (principal); Z3A.36 36 weeks gestation of pregnancy
CPT/HCPCS: 36415; 76819; 80053; 83690; 84550; 85025; 85610; 85730; 96374; A9270; G0378; G0379; J2405; J7030

== ENCOUNTER 2024-03-24 14:34 | Outpatient (RCR) | payer BC, SELFPAY ==
[2024-03-24 15:23] VITALS: BP 106/58; PULSE 76
== END 2024-05-19 13:32 | disposition home or self-care (01) ==
LOC: ANHOBOP 14:34
PROVIDERS: Visit Provider Obstetrics & Gynecology
DX: O36.8330 Maternal care for abnormalities of the fetal heart rate or rhythm, third trimester, not applicable or unspecified (principal); Z3A.36 36 weeks gestation of pregnancy
CPT/HCPCS: 59025

== ENCOUNTER 2024-04-21 16:14 | Inpatient (IN) | payer BC, SELFPAY ==
[2024-04-21] VITALS (9 sets, daily range): BP systolic 91–158; BP diastolic 43–71; PULSE 65–85; TEMP 36.1–36.6; BMI 33.2
--- NOTE | 2024-04-21 17:01 | LDADM ---
This patient, Karina Su, was admitted to Labor/Delivery/Recovery 102 on 04/21/24 at 16:14. Plans for labor, pain management and were discussed with patient. Patient/family oriented to hospital policies and general routines including ID bracelet, bed and alarms, visiting hours, pain management, procedures, bathroom and other care routines, personal items, smoking policy, room service/diet and guest tray routines, security routines, and visiting hours. Patient/Family are encouraged to report perceived risks to care and to ask questions if they do not understand what they are told or what they should do. See OBIX for further documentation.
[2024-04-21 17:13] LABS: Basophils Percent Auto 0.3 % (0.2-1.2); Eosinophils Absolute Auto 0.1 K/mm3 (0-0.3); Eosinophils Percent Auto 0.9 % (0-4.4); Hematocrit 34.1 % (37.0-47.0); Hemoglobin 11.5 g/dL (12.0-15.0); Immature Granulocyte Absolute 0.04 K/mm3 (0.00-0.031); Immature Granulocyte Percent A 0.4 % (0-0.5); Lymphocytes Absolute Auto 2.92 K/mm3 (0.9-3.2); Lymphocytes Percent Auto 27.7 % (18.3-44.2); Mean Corpuscular HGB Conc 33.7 g/dl (32-36); Mean Corpuscular Hemoglobin 30.9 pg (26-34); Mean Corpuscular Volume 91.7 fl (80-100); Mean Platelet Volume 10.1 fl (7.4-10.4); Monocytes Absolute Auto 0.5 K/mm3 (0.1-0.6); Monocytes Percent Auto 4.3 % (2.6-8.5); Neutrophils Percent Auto 66.4 % (45.5-73.1); Platelet Count Result 213 k/mm3 (150-375); Red Blood Count 3.72 M/mm3 (4.2-5.4); Red Cell Distribution Width 12.4 % (11.5-14.5); White Blood Count 10.5 K/mm3 (4.5-10.0)
[2024-04-21] MEDS: DINOPROSTONE 10 MG VAG INSERT VAGINAL (17:13)
--- NOTE | 2024-04-21 17:19 | WPDANESEPP ---
Anes - Eval Pre Procedure Procedure: labor epidural Date/Time: 04/21/24 17:19 Pre Op Diagnosis: IOL Patient Data Age: 28 Gender: F Height: Weight: Last Vital Signs Pulse 82 04/21/24 17:00 BP 110/68 04/21/24 17:00 Allergies Allergy/AdvReac Type Severity Reaction Status Date / Time aloe vera [From Vagisil] AdvReac Intermediate Swelling Verified 04/14/24 10:21 fluconazole [From Diflucan] AdvReac Intermediate Swelling Verified 04/14/24 10:21 mineral oil [From Vagisil] AdvReac Intermediate Swelling Verified 04/14/24 10:21 resorcinol [From Vagisil] AdvReac Intermediate Swelling Verified 04/14/24 10:21 starch [From Vagisil] AdvReac Intermediate Swelling Verified 04/14/24 10:21 vitamin E (d-alpha AdvReac Intermediate Swelling Verified 04/14/24 10:21 tocopherol) [From Vagisil] vitamins A and D AdvReac Intermediate Swelling Verified 04/14/24 10:21 [From Vagisil] Azoles AdvReac Mild Rash Uncoded 04/14/24 10:21 Home Medications Medication Instructions Recorded Confirmed Type vits no.126-ferrous fum tablet PO 09/09/23 04/14/24 History 28 mg iron-folic acid 800 mcg tablet (Classic ) Laboratory Tests 04/21/24 16:43 WBC 10.5 H K/mm3 (4.5-10.0) RBC 3.72 L M/mm3 (4.2-5.4) Hgb 11.5 L g/dL (12.0-15.0) Hct 34.1 L % (37.0-47.0) MCV 91.7 fl (80-100) MCH 30.9 pg (26-34) MCHC 33.7 g/dl (32-36) RDW 12.4 % (11.5-14.5) Plt Count 213 k/mm3 (150-375) MPV 10.1 fl (7.4-10.4) Immature Gran % (Auto) 0.4 % (0-0.5) Neut % (Auto) 66.4 % (45.5-73.1) Lymph % (Auto) 27.7 % (18.3-44.2) Andrew % (Auto) 4.3 % (2.6-8.5) Eos % (Auto) 0.9 % (0-4.4) Baso % (Auto) 0.3 % (0.2-1.2) Lymph # (Auto) 2.92 K/mm3 (0.9-3.2) Andrew # (Auto) 0.5 K/mm3 (0.1-0.6) Eos # (Auto) 0.1 K/mm3 (0-0.3) Baso # (Auto) 0.0 K/mm3 (0.0-0.1) Abs Immat Gran (auto) 0.04 H K/mm3 (0.00-0.031) Absolute Neuts (auto) 7.0 H K/mm3 (1.3-6.7) Absolute Nucleated RBC 0.000 K/mm3 (0.0-0.012) Nucleated RBC % 0.0 % (0.0-0.2) RPR Pending HIV 1&2 Ab/P24 Ag 4thGn Pending Patient hx anesthesia problems: none Family hx anesthesia problems: none Results Review: All pre-operative results and documents have been reviewed as part of the pre-operative evaluation. [facility] Past Medical History Medical History No significant past medical history Suppression of menses Surgical History Surgical History No significant past surgical history [place] teeth extracted Family History Family History Father Heart disease Heart attack Mother Crohn disease Other No significant family history Social History Social History Smoking status: Never smoker Alcohol intake: current Alcohol use details: Occasional Substance use: never Lack of Transportation: No Lack of Food: Never True Current Housing: I Have Housing Concerned About Future Housing: No Difficulty Paying Gas/Electric Bills: No Difficulty Paying for Meds: No Currently Unemployed: No Education: Bachelor's Degree Difficulty w/ Childcare or Family Care: No Living arrangements: with family Occupation/Education: occupation Gender identity (if verbalized by the patient): Female Spiritual care concerns: No Exam Day of Procedure 04/21/24 17:19 Patient weight: obese Heart: regular rate and rhythm Lungs: normal air movement Airway: Mallampati scale Neurological: alert and oriented
[2024-04-21 18:11] LABS: HIV 1/2 Ab P24 Ag Result Negative (Negative)
--- NOTE | 2024-04-21 19:58 | PM.IMHP ---
H&P: HPI History of Present Illness Date/Time: 04/21/24 19:58 Chief Complaint: Elective IOL Narrative: aKrina is a 28yo @ 40.1wks who presents for elective IOL. She has had regular care and was closely followed in the 1st and 2nd trimesters of her pregnnacy by MFM due to parvo infection in . She reports good movement. Irregular ctx. No VB or LOF. Her is complicated by: - Parvo IgG & IgM positive -- followed with MFM with normal US in 1st/2nd trimester Review of Systems Constitutional: Constitutional: Denies chills, Denies fever(s) and Denies headache(s) Eyes: Eyes: Denies change in vision ENT: Denies headache(s) Cardiovascular: Cardiovascular: Denies chest pain and Denies dyspnea Respiratory: Respiratory: Denies dyspnea Genitourinary: Genitourinary: Denies abnormal vaginal bleeding and Denies vaginal discharge Neurologic: Denies headache(s) Psychiatric: Psychiatric: Denies anxiety and Denies depression [facility] Past Medical History Medical History No significant past medical history Suppression of menses Surgical History Surgical History No significant past surgical history [place] teeth extracted Family History Family History Father Heart disease Heart attack Mother Crohn disease Other No significant family history Social History Social History Smoking status: Never smoker Alcohol intake: current Alcohol use details: Occasional Substance use: never Lack of Transportation: No Lack of Food: Never True Current Housing: I Have Housing Concerned About Future Housing: No Difficulty Paying Gas/Electric Bills: No Difficulty Paying for Meds: No Currently Unemployed: No Education: Bachelor's Degree Difficulty w/ Childcare or Family Care: No Living arrangements: with family Occupation/Education: occupation Gender identity (if verbalized by the patient): Female Spiritual care concerns: No Meds Home Medications and Allergies Home Medications Medication Instructions Recorded Confirmed Type vits no.126-ferrous fum 1 tablet PO DAILY 09/09/23 04/21/24 History 28 mg iron-folic acid 800 mcg tablet (Classic ) Allergies Allergy/AdvReac Type Severity Reaction Status Date / Time aloe vera [From Vagisil] AdvReac Intermediate Swelling Verified 04/14/24 10:21 fluconazole [From Diflucan] AdvReac Intermediate Swelling Verified 04/14/24 10:21 mineral oil [From Vagisil] AdvReac Intermediate Swelling Verified 04/14/24 10:21 resorcinol [From Vagisil] AdvReac Intermediate Swelling Verified 04/14/24 10:21 starch [From Vagisil] AdvReac Intermediate Swelling Verified 04/14/24 10:21 vitamin E (d-alpha AdvReac Intermediate Swelling Verified 04/14/24 10:21 tocopherol) [From Vagisil] vitamins A and D AdvReac Intermediate Swelling Verified 04/14/24 10:21 [From Vagisil] Azoles AdvReac Mild Rash Uncoded 04/14/24 10:21 Vital Signs Vital Signs - 24 hr 04/21/24 16:40 04/21/24 17:00 04/21/24 17:30 Temperature 97 F L Pulse Rate 85 82 78 Blood Pressure 158/71 H 110/68 117/65 Oxygen Delivery 04/21/24 18:00 04/21/24 18:30 04/21/24 19:00 Temperature 98 F Pulse Rate 70 73 79 Blood Pressure 121/60 114/63 121/66 Oxygen Delivery 04/21/24 17:37 Temperature Pulse Rate Blood Pressure Oxygen Delivery Room Air Exam Const: General: cooperative, healthy appearing, comfortable, no acute distress and obese Nutritional Appearance: obese Orientation/consciousness: patient oriented x3 Resp: Effort & Inspection: normal respiratory effort Cardio: Rate: regular rate GI: GI Palp: No abdominal tenderness : Other: FHT's: 120's/ mod
[2024-04-22] VITALS (114 sets, daily range): BP systolic 69–140; BP diastolic 31–100; PULSE 63–97; RESP 16–18; TEMP 36.4–37.4; O2SAT 96–100
[2024-04-22] MEDS: LACTATED RINGERS 1,000 ML 125 ML IV CONT ×2 (05:58→08:20)
[2024-04-22] MEDS: OXYTOCIN 30 UNITS/NS 500 ML 30 UNITS/500 ML BAG IV CONT (06:00)
--- NOTE | 2024-04-22 08:06 | PM.OBPNLAB ---
Pain Control Date/time seen: 04/22/24 08:06 Pain control: tolerating well (would like epidural now though) Pelvic Exam Dilation (cm): 4 Effacement (%): 50 station: -1 Amniotic membrane status: Ruptured (AROM, clear, scant 0715) Contractions Monitor mode: External Status status: Category l Assessment and Plan Pitocin rate (mU/min): 4 Assessment: induction ongoing Plan: continuous present management Comments: - anesthesia for epidural - continue low dose pitocin
[2024-04-22 11:56] LABS: Rapid Plasma Reagin Non-Reactive (NonReactive)
--- NOTE | 2024-04-22 12:56 | PM.OBPRVD ---
OB - Vaginal Delivery Note Procedure Delivery date: 04/22/24 Events: Elective Induction of Labor and Other (parvo infection in ) Induction method: Per Cervidil Protocol Delivery augmentation: Rupture of Membranes and Pitocin Delivery monitor: External FHT and External Uterine Route of delivery: Episiotomy description: None Laceration Description: Perineal - 2nd Degree Delivery repair: vicryl Specimen: Yes (placenta) Quantitative Blood Loss (ml): 200 Anesthesia type: Epidural Disposition: Floor Complications: No immediate complications Tibbie Baby Date of : 04/22/24 Time of : 12:38 Weeks of gestation at delivery: 40 (.2) Infant gender: Female presentation: vertex Placenta delivery description: Expressed Cord Vessel Description: 3 Vessels and Clamped/Cut score one minute: 8 score five minutes: 9 Narrative: Karina rapidly progressed to complete dilation with strong desire to push. She pushed for 4 contractions with good maternal effort. She delivered the head over intact perineum, compound with left hand by the mouth. No nuchal cord was palpated. She easily delivered the 's shoulders and body without complication. The was immediately placed skin to skin had spontaneous cry. A short umbilical cord was noted therefore the umbilical cord was doubly clamped and cut. A segment of the cord was collected for cord gases. The remaining cord blood was collected for typing. With Pitocin running and gentle downward traction on the cord, the placenta delivered without complication. Bimanual massage was performed and good uterine tone with minimal bleeding was noted. She was examined and a small second-degree perineal laceration was identified. The perineal laceration was repaired in the normal fashion using 2-0 Vicryl. Bimanual massage was once again performed and good uterine tone with minimal bleeding was noted. Sponge, lap, instrument, and needle counts were correct at the end of the procedure. Mom and baby were left bonding in the birthing suite in stable condition.
[2024-04-22] MEDS: ONDANSETRON INJ 4 MG/2 ML VIAL IV PUSH (13:12)
[2024-04-22] MEDS: OXYTOCIN 30 UNITS/NS 500 ML 30 UNITS/500 ML BAG 125 UNITS IV CONT (13:16)
--- NOTE | 2024-04-22 15:17 | OBPPTRN ---
Patient transferred to post room #282 via wheelchair. Support person present. Oriented to unit, room, information board, rooming in, admission packet and security measures. Patient verbalizes understanding.
[2024-04-22] MEDS: DOCUSATE SODIUM 100 MG CAPSULE PO (17:38)
[2024-04-22] MEDS: ACETAMINOPHEN 325 MG TABLET 650 MG PO (19:42)
[2024-04-22] MEDS: SIMETHICONE 80 MG TAB.CHEW PO (22:48)
[2024-04-22] MEDS: IBUPROFEN 600 MG TABLET PO (22:48)
[2024-04-23] MEDS: ACETAMINOPHEN 325 MG TABLET 650 MG PO (04:22)
[2024-04-23 05:14] LABS: Hematocrit 35.1 % (37.0-47.0); Hemoglobin 11.4 g/dL (12.0-15.0); Mean Corpuscular HGB Conc 32.5 g/dl (32-36); Mean Corpuscular Hemoglobin 30.2 pg (26-34); Mean Corpuscular Volume 93.1 fl (80-100); Mean Platelet Volume 10.1 fl (7.4-10.4); Platelet Count Result 181 k/mm3 (150-375); Red Blood Count 3.77 M/mm3 (4.2-5.4); Red Cell Distribution Width 12.5 % (11.5-14.5); White Blood Count 11.2 K/mm3 (4.5-10.0)
--- NOTE | 2024-04-23 07:11 | PM.OBPNVD ---
OB - PN: Subj Subjective Date/time seen: 04/23/24 07:19 Narrative: PPD#1 Karina reports doing well today. Her bleeding is hat body sorter. Her pain is controlled. She is tolerating regular diet, voiding, passing gas, and ambulating without issues. She is breast feeding. She would like to go home today. OB - PN: Obj Data Labs 04/23/24 05:00 Labs: Laboratory Results - last 24 hr 04/21/24 16:43 RPR Non-reactive OB - PN A/P Assessment and Plan (1) Normal vaginal delivery of second : Code(s): O80 - Encounter for full-term uncomplicated delivery Status: Acute Plan day: 1 Plan: routine care Comments: - PO pain meds - Regular diet - Ambulation and hydration encouraged - Continue putting baby to breast q2-3hr - Pelvic rest; take meds as prescribed - ER return precautions: fever, n/v/abd pain, bleeding, HTN Time Spent With Patient Time: Total time spent is greater than 50% in coordination of care (as documented) at patient's floor/unit and/or counseling patient: Review of Systems Constitutional: Constitutional: Denies chills, Denies fever(s) and Denies headache(s) Eyes: Eyes: Denies change in vision ENT: Denies dizziness and Denies headache(s) Cardiovascular: Cardiovascular: Denies chest pain, Denies palpitations and Denies dyspnea Respiratory: Respiratory: Denies cough and Denies dyspnea Gastrointestinal: Gastrointestinal: Denies nausea and Denies vomiting Neurologic: Denies dizziness and Denies headache(s) Endocrine: Endocrine: Denies palpitations Exam Const: General: cooperative, comfortable and no acute distress Orientation/consciousness: patient oriented x3 Resp: Effort & Inspection: normal respiratory effort Auscultation: clear to auscultation bilaterally Cardio: Rate: regular rate GI: Inspection: non-distended GI Palp: No abdominal tenderness and Yes Soft to palpation Auscultation: normal bowel sounds : Other: fundus firm Skin: General skin exam: normal color Neuro: General: patient oriented x3 Extrem: General: normal to inspection Psych: Appearance: grossly normal Affect: normal affect Attitude: cooperative
--- NOTE | 2024-04-23 07:29 | P.DS_ITS ---
DS: Admitting Diagnosis Discharge Date 04/23/24 Admitting Diagnosis Elective IOL Parvo infection in DS: Discharge Diagnosis Discharge Diagnosis (1) Normal vaginal delivery of second : Code(s): O80 - Encounter for full-term uncomplicated delivery Status: Acute OB - DS: Summary OB Procedures : Ultrasound and Other (MFM monitoring w/ growths/MCA dopplers) OB Procedures Intrapartum: Spontaneous Vag Delivery OB Procedures: : None Peripartum Data Infant Delivery Method: Natural Vaginal Laceration Description: Perineal - 2nd Degree Episiotomy description: None complications: none 1: Gender: Female Disposition of : home Status at Discharge Functional status at discharge: independent ambulation Overall status at discharge: patient is back to baseline Time Spent with Patient Time attestation: Total time spent providing and/or coordinating discharge services: Exam Const: General: cooperative, healthy appearing, comfortable, no acute distress and obese Orientation/consciousness: patient oriented x3 Resp: Effort & Inspection: normal respiratory effort Auscultation: clear to auscultation bilaterally Cardio: Rate: regular rate GI: Inspection: non-distended GI Palp: No abdominal tenderness and Yes Soft to palpation Auscultation: normal bowel sounds : Other: fundus firm Skin: General skin exam: normal color Neuro: General: patient oriented x3 Extrem: General: normal to inspection Psych: Appearance: grossly normal Affect: normal affect Attitude: cooperative DS: Data Data Completed and Pending Pending studies at discharge: Pending at discharge 04/22/24 13:22 Surgical [PTH] Routine Labs on day of discharge: Labs from last 24 hours 04/21/24 16:43 RPR Non-reactive Discharge Plan Discharge Attending physician on discharge: Farhana Trejo Discharging Clinician: Farhana Trejo Patient Disposition: Home, Self-Care Activity: may shower and pelvic rest Diet: regular Patient Instructions: Vaginal Delivery (DC) Stand Alone Forms: General Discharge Information Follow-up/Referrals: Farhana Trejo MD [Physician] - 4 Weeks Discharge Medications: New acetaminophen 325 mg Tablet 650 mg PO Q6H PRN (Reason: Mild Pain (1-3) Or Headache) Qty: 60 0RF docusate sodium 100 mg Capsule 100 mg PO BID PRN (Reason: Constipation) Qty: 90 0RF ibuprofen 600 mg Tablet 600 mg PO Q6H PRN (Reason: Cramping) Qty: 40 0RF Continued Classic 28 mg iron- 800 mcg tablet 1 tablet PO DAILY Date of admission: 04/21/24 16:14 Primary Care Provider: PHYSICIAN,CLOTHESPIN MACHINE OPERATOR Admitting Provider: Farhana Trejo Attending physician on admission: Farhana Trejo Condition: Stable
[2024-04-23 07:30] VITALS: BP 107/64; PULSE 64; RESP 18; TEMP 37.1; O2SAT 99
--- NOTE | 2024-04-23 07:30 | PC.NURSE ---
Patient expressed upon assessment that her bleeding worsens when she breastfeeds, this RN explained that when the uterus contracts and that is the cause of increased bleeding. Patient explains that during a feeding she fills an entire sanitary pad, this RN felt fundus at this time and found it to be firm -1, bleeding was small. Informed patient of the importance of notifying her MD if bleeding were to worsen or increase during these periods or while not feeding as well.
[2024-04-23] MEDS: MULTIVIT/MIN/PREN/FOL AC/IRON TABLET 1 TAB PO (07:37)
[2024-04-23] MEDS: DOCUSATE SODIUM 100 MG CAPSULE PO (07:37)
--- NOTE | 2024-04-23 11:20 | PC.NURSE ---
Mother verbalizes she is able to independently latch with appropriate positioning and alignment. She has some nipple discomfort, especially with initial latch on. She knows how to adjust for a deeper latch and then the soreness lessens as baby feeds. She has a 15 month old that she successfully breastfed. is currently meeting outcomes for weight, output, jaundice, blood sugar and feeding frequencies of 8-12 times in 24 hours. Mom just fed baby in football position on the right breast for 8 minutes. Infant is sleeping and not interested in the other breast. Mother declines any additional assistance or education at this time. Mother is encouraged to call for assistance if her infant doesn?t latch, pain with latching, if she wants a latch check, questions or concerns. Mother voiced understanding of information shared along with the mom/baby guide for an additional resource and outpatient assistance. Reported to the Primary RN.
[2024-04-23 12:39] VITALS: BP 112/70; PULSE 72; RESP 16; TEMP 36.9; O2SAT 100
[2024-04-24 11:26] VITALS: BP 111/82; PULSE 72; RESP 18; TEMP 37.1; O2SAT 100
== END 2024-04-23 13:48 | disposition home or self-care (01) | DRG 807 ==
LOC: ANHLDR 16:19 → ANHOB2 04-22 15:50
PROVIDERS: Admitting Provider Obstetrics & Gynecology; Visit Provider Obstetrics & Gynecology
DX: O69.3XX0 Labor and delivery complicated by short cord, not applicable or unspecified (principal); Z37.0 Single live birth; O70.1 Second degree perineal laceration during delivery; Z3A.40 40 weeks gestation of pregnancy
CPT/HCPCS: 36415; 85025; 85027; 86592; 86703; 86850; 86900; 86901; 88307; A9270; G0432; J2405; J2590; J2795; J7120

== ENCOUNTER 2024-05-07 13:50 | Emergency (ER) | payer BC, SELFPAY ==
--- NOTE | ~2024-05-07 | XR_ITS ---
EXAMINATION: XR chest 2V DATE: 05/07/2024 14:28 INDICATION: Chest pain. TECHNIQUE: Frontal and lateral views of the chest were obtained. COMPARISON: None. FINDINGS: There is no pneumonia, pleural effusion, or pneumothorax. The heart size is normal. IMPRESSION: 1. No acute cardiopulmonary disease. Reviewed, dictated and finalized at location A.
--- NOTE | ~2024-05-07 | CT_ITS ---
CTA chest PE protocol Ordering provider: Piero Gillette MD History: 28 years Female with . Dyspnea, high dimer, recent delivery 2 weeks ago . Comparison: None. Technique: CT angiogram chest was performed following timed intravenous injection of contrast. Thin s lice axial images and reformatted coronal images were obtained. Three dimensional reformatted images of the chest were also obtained using a [employer] workstation. . Automated exposure control and iterati ve reconstruction technique were employed. The dose-length product was 536.46 mGy-cm. 100 mL Omnipaqu e 350 was given IV. Findings: PULMONARY ARTERIES: No pulmonary embolus. VISUALIZED THORACIC INLET: Normal. MEDIASTINUM: Aorta/coronary arteries: The thoracic aorta is normal. Heart/other: The heart is not enlarged. Lymph nodes: No mediastinal or hilar adenopathy. LUNGS: No pulmonary nodules or masses. No infiltrates or effusions. No pneumothorax. VISUALIZED UPPER ABDOMEN: the visualized upper abdomen is normal. MUSCULOSKELETAL: Soft tissues: The superficial soft tissues are normal. Bones: Normal spine. IMPRESSION: 1. No pulmonary embolism. 2. No acute cardiopulmonary pathology. Reviewed, dictated and finalized at location A.
--- NOTE | ~2024-05-07 | US_ITS ---
EXAMINATION: US abdomen limited DATE: 05/07/2024 14:59 INDICATION: Epigastric abdominal pain. TECHNIQUE: Multiple grayscale and Doppler ultrasound images of the abdomen were obtained. COMPARISON: None FINDINGS: The pancreas is obscured by bowel gas. The liver is normal without focal lesion. There is n ormal flow in main portal vein. The gallbladder is normal in size contains gallstones. No gallbladder wall thickening or sonographic Grover sign. The common duct is normal and measures 4 mm. IMPRESSION: 1. Cholelithiasis. No evidence of acute cholecystitis. Reviewed, dictated and finalized at location A.
--- NOTE | 2024-05-07 13:51 | ECG_ITS ---
Test Date: 2024-05-07 14:10:20 Measurements Intervals [place] Rate: 70 P: 50 MO: 139 QRS: 7 QRSD: 80 T: 14 QT: 359 QTc: 388 Interpretive Statements SINUS RHYTHM NORMAL ELECTROCARDIOGRAM No previous ECG available for comparison Electronically Signed On 05-08-2024 13:33:54 CDT by Berry Caceres M.D.
[2024-05-07 14:00] VITALS: BP 123/77; PULSE 76; RESP 15; O2SAT 100
[2024-05-07 14:05] VITALS: BP 123/77; PULSE 78; RESP 16; TEMP 36.8; O2SAT 100
[2024-05-07 14:17] VITALS: BP 111/73; PULSE 67; RESP 12; TEMP 36.8; O2SAT 98
--- NOTE | 2024-05-07 14:25 | ED.CHESTPAIN ---
HPI - Chest Pain General Chief Complaint: Chest Pain Stated Complaint: chest pain Time Seen by Provider: 05/07/24 13:55 History of Present Illness HPI narrative: This is a 28-year-old female with a past medical history of recent vaginal delivery of a 2-week-old . She presents to the ED for evaluation of epigastric chest pain and epigastric abdominal pain associated with nausea and vomiting. She states that it has been present ever since she gave and has been taking Gas-X at home with only minimal relief of her pain. She is now having nausea and vomiting and pain that is unremitting. Pain comes in waves. No associated dyspnea, headache, vision changes, diarrhea, constipation, GI or symptoms. No complications during her . She called her OB GYNs office today and was still 3 go to the emergency department for evaluation and they were concerned of potential embolism versus gallbladder. Related Data Home Medications Medication Instructions Recorded Confirmed vits no.126-ferrous fum 1 tablet PO DAILY 09/09/23 04/21/24 28 mg iron-folic acid 800 mcg tablet (Classic ) Allergies Allergy/AdvReac Type Severity Reaction Status Date / Time aloe vera [From Vagisil] AdvReac Intermediate Swelling Verified 05/07/24 14:08 fluconazole [From Diflucan] AdvReac Intermediate Swelling Verified 05/07/24 14:08 mineral oil [From Vagisil] AdvReac Intermediate Swelling Verified 05/07/24 14:08 resorcinol [From Vagisil] AdvReac Intermediate Swelling Verified 05/07/24 14:08 starch [From Vagisil] AdvReac Intermediate Swelling Verified 05/07/24 14:08 vitamin E (d-alpha AdvReac Intermediate Swelling Verified 05/07/24 14:08 tocopherol) [From Vagisil] vitamins A and D AdvReac Intermediate Swelling Verified 05/07/24 14:08 [From Vagisil] Azoles AdvReac Mild Rash Uncoded 04/14/24 10:21 Review of Systems Review of Systems: As reviewed [facility] HPI [facility] Past Medical History Medical History (Updated 05/07/24 @ 16:53 by Piero Gillette MD) No significant past medical history Suppression of menses Surgical History Surgical History No significant past surgical history [place] teeth extracted Family History Family History Father Heart disease Heart attack Mother Crohn disease Other No significant family history Social History Social History Smoking status: Never smoker Alcohol intake: current Alcohol use details: Occasional Substance use: never Lack of Transportation: No Lack of Food: Never True Current Housing: I Have Housing Concerned About Future Housing: No Difficulty Paying Gas/Electric Bills: No Difficulty Paying for Meds: No Currently Unemployed: No Education: Bachelor's Degree Difficulty w/ Childcare or Family Care: No Living arrangements: with family Occupation/Education: occupation Gender identity (if verbalized by the patient): Female Spiritual care concerns: No Exam Narrative: GENERAL: [Well-appearing, well-nourished, and in no acute distress.] HEAD: [Normocephalic, atraumatic.] EYES: [PERRLA and EOMI.] ENT: Nares clear, no rhinorrhea or epistaxis. Mucous membranes moist. NECK: Supple. CHEST: [Clear to auscultation. No respiratory distress.] HEART: [Regular rate and rhythm]. No murmur heard. [Normal peripheral pulses.] ABDOMEN: [Soft, nondistended], [nontender], [No rigidity or guarding]. negative [place] sign EXTREMITIES: Normal range of motion. [No edema.] SKIN: Warm, dry, no rash. NEURO: [No focal deficits]. Alert and oriented [x3.] PSYCH: [Normal mood and affect.] Course Vital Signs Vital signs: Vital Signs Pulse Rate 76 05/07/24 14:00 Respiratory Rate 15 05/07/24 14:00 Blood Pressure 123/77
[2024-05-07 14:27] VITALS: PULSE 74
[2024-05-07 14:37] LABS: Basophils Percent Auto 0.5 % (0.2-1.2); Eosinophils Absolute Auto 0.1 K/mm3 (0-0.3); Eosinophils Percent Auto 1.7 % (0-4.4); Hematocrit 42.1 % (37.0-47.0); Hemoglobin 13.6 g/dL (12.0-15.0); Immature Granulocyte Absolute 0.01 K/mm3 (0.00-0.031); Immature Granulocyte Percent A 0.1 % (0-0.5); Lymphocytes Absolute Auto 2.85 K/mm3 (0.9-3.2); Lymphocytes Percent Auto 36.5 % (18.3-44.2); Mean Corpuscular HGB Conc 32.3 g/dl (32-36); Mean Corpuscular Hemoglobin 29.8 pg (26-34); Mean Corpuscular Volume 92.1 fl (80-100); Monocytes Absolute Auto 0.5 K/mm3 (0.1-0.6); Monocytes Percent Auto 6.3 % (2.6-8.5); Neutrophils Absolute Auto 4.3 K/mm3 (1.3-6.7); Neutrophils Percent Auto 54.9 % (45.5-73.1); Platelet Count Result 261 k/mm3 (150-375); Red Blood Count 4.57 M/mm3 (4.2-5.4); Red Cell Distribution Width 11.7 % (11.5-14.5); White Blood Count 7.8 K/mm3 (4.5-10.0)
[2024-05-07] MEDS: MORPHINE SULFATE (*CRX) 4 MG/ML INJ IV PUSH (14:37)
[2024-05-07] MEDS: MAG HYDROX/AL HYDROX/SIMETH 30 ML UDC PO (14:37)
[2024-05-07] MEDS: LACTATED RINGERS 1,000 ML 999 ML IV CONT (14:37)
[2024-05-07] MEDS: FAMOTIDINE 20 MG/2 ML VIAL IV PUSH (14:38)
[2024-05-07] MEDS: ONDANSETRON INJ 4 MG/2 ML VIAL IV PUSH (14:38)
[2024-05-07 14:50] LABS: Prothrombin Time 13.4 Seconds (11.1-14.7)
[2024-05-07 14:51] LABS: Alanine Aminotransferase 55 U/L (6-35); Albumin Level 4.2 g/dL (3.5-5.1); Alkaline Phosphatase 106 U/L (38-126); Anion Gap 9 mmol/L (4-12); Aspartate Amino Transferase 49 U/L (14-36); Bilirubin,Total 0.4 mg/dL (0.2-1.3); Blood Urea Nitrogen 13 mg/dL (7-17); Calcium 8.8 mg/dL (8.4-10.2); Carbon Dioxide 27 mmol/L (22-30); Chloride 104 mmol/L (98-107); Estimated CRCL calculation 133 ml/min; Estimated Glomerular Filt Rate > 60; Glucose 100 mg/dL (65-110); Lipase 289 U/L (23-300); Partial Thromboplastin Time 23.8 Seconds (22.3-36.8); Potassium 3.8 mmol/L (3.4-5.0); Sodium 140 mmol/L (137-145)
[2024-05-07 14:54] LABS: D Dimer 1.96 ug/mL (<0.48)
[2024-05-07 15:00] VITALS: BP 112/74; PULSE 67; RESP 12; TEMP 36.8; O2SAT 97
[2024-05-07 15:14] LABS: Troponin I < 0.012 ng/mL (0.000-0.034)
[2024-05-07 16:30] VITALS: BP 124/64; PULSE 66; RESP 14; TEMP 36.6; O2SAT 98
== END 2024-05-07 17:13 | disposition home or self-care (01) ==
PROVIDERS: Emergency Medicine; Emergency Provider Student in an Organized Health Care Education/Training Program
DX: O99.63 Diseases of the digestive system complicating the puerperium (principal); K80.20 Calculus of gallbladder without cholecystitis without obstruction; O99.893 Other specified diseases and conditions complicating puerperium; R07.9 Chest pain, unspecified
CPT/HCPCS: 36415; 71046; 71275; 76705; 80053; 83690; 84484; 85025; 85380; 85610; 85730; 93005; 96374; 96375; 99284; A9270; J2270; J2405; J7120; Q9967

== ENCOUNTER 2024-05-20 12:10 | Outpatient (CLI) | payer BC, SELFPAY ==
[2024-05-20 12:31] LABS: Basophils Percent Auto 0.4 % (0.2-1.2); Eosinophils Absolute Auto 0.1 K/mm3 (0-0.3); Eosinophils Percent Auto 1.8 % (0-4.4); Hematocrit 38.6 % (37.0-47.0); Hemoglobin 12.4 g/dL (12.0-15.0); Immature Granulocyte Absolute 0.02 K/mm3 (0.00-0.031); Immature Granulocyte Percent A 0.3 % (0-0.5); Lymphocytes Absolute Auto 2.93 K/mm3 (0.9-3.2); Lymphocytes Percent Auto 40.7 % (18.3-44.2); Mean Corpuscular HGB Conc 32.1 g/dl (32-36); Mean Corpuscular Hemoglobin 29.7 pg (26-34); Mean Corpuscular Volume 92.6 fl (80-100); Mean Platelet Volume 10.2 fl (7.4-10.4); Monocytes Absolute Auto 0.5 K/mm3 (0.1-0.6); Monocytes Percent Auto 6.8 % (2.6-8.5); Neutrophils Absolute Auto 3.6 K/mm3 (1.3-6.7); Platelet Count Result 222 k/mm3 (150-375); Red Blood Count 4.17 M/mm3 (4.2-5.4); Red Cell Distribution Width 11.5 % (11.5-14.5); White Blood Count 7.2 K/mm3 (4.5-10.0)
[2024-05-20 14:21] LABS: Alanine Aminotransferase 125 U/L (6-35); Albumin Level 4.5 g/dL (3.5-5.1); Alkaline Phosphatase 129 U/L (38-126); Amylase 69 U/L (30-110); Anion Gap 12 mmol/L (4-12); Aspartate Amino Transferase 57 U/L (14-36); Bilirubin,Total 0.3 mg/dL (0.2-1.3); Blood Urea Nitrogen 11 mg/dL (7-17); Calcium 9.3 mg/dL (8.4-10.2); Carbon Dioxide 28 mmol/L (22-30); Chloride 101 mmol/L (98-107); Estimated Glomerular Filt Rate > 60; Glucose 78 mg/dL (65-110); Lipase 79 U/L (23-300); Potassium 4.2 mmol/L (3.4-5.0); Sodium 141 mmol/L (137-145)
== END 2024-05-20 12:11 | disposition home or self-care (01) ==
PROVIDERS: Visit Provider Obstetrics & Gynecology
DX: R10.11 Right upper quadrant pain (principal)
CPT/HCPCS: 36415; 80053; 82150; 83690; 85025

== ENCOUNTER 2024-06-02 11:35 | Outpatient (CLI) | payer BC, SELFPAY ==
[2024-06-02 12:11] LABS: Alanine Aminotransferase 26 U/L (6-35); Albumin Level 4.4 g/dL (3.5-5.1); Alkaline Phosphatase 98 U/L (38-126); Amylase 70 U/L (30-110); Aspartate Amino Transferase 24 U/L (14-36); Bilirubin,Total 0.2 mg/dL (0.2-1.3); Lipase 59 U/L (23-300)
== END 2024-06-02 11:36 | disposition home or self-care (01) ==
PROVIDERS: Visit Provider Surgery
DX: Z01.818 Encounter for other preprocedural examination (principal); K80.10 Calculus of gallbladder with chronic cholecystitis without obstruction
CPT/HCPCS: 36415; 80076; 82150; 83690

== ENCOUNTER 2024-06-04 02:00 | Day surgery (SDC) | payer BC, SELFPAY ==
[2024-05-29 11:23] VITALS: BMI 30.7
--- NOTE | 2024-05-29 11:30 | PC.NURSE ---
Report to the Outpatient Waiting Room, entrance under the green pavilion located off [facility], at time 1100 on date _06/04/24. Planned Procedure Time: __1300.? Time changes happen often and if your time is changed the preop area will call you the afternoon before. - You and your visitor will be asked to self-screen and do not enter if you have any COVID symptoms. Please call surgeon if you need to reschedule. - A mask is optional within the hospital at this time. Patients may have clear liquids (water, carbonated beverages, clear teas, apple juice) until 3 hours prior to surgery with a maximum of 20 ounces. - No food from midnight until time of surgery and no smoking - Infants may have breast milk until 4 hours before surgery, infant formula 6 hours prior to surgery. - Children will be allowed to drink immediately following surgery.? If applicable, please bring a bottle or sippy cup to assist with drinking. Juice, water, soda, and popsicles are readily available.? For infants on formula, please bring formula the day of surgery.? Pacifiers are allowed. Take only the following medications with a SIP of water on the morning of surgery: __NONE DO NOT STOP ANY OF YOUR OTHER PRESCRIPTION MEDICATIONS PRIOR TO SURGERY EXCEPT THE FOLLOWING Medications to discontinue per physician NONE Date to take last dose Please no make-up, nail icelandic, hairspray, perfume, deodorant, or body powder the day of surgery.? No jewelry (including any body piercings) or valuables the day of surgery, leave them at home.? Please take a shower or bath the night before, or the morning of, surgery with HIBICLENS antibacterial soap.? Wear comfortable, loose fitting clothing.? Children are encouraged to wear pajamas. - Jewelry must be removed prior to entering the operating room.? Rings and piercings that are not removed may be cut off. - The hospital will not accept responsibility for valuables.? - Please leave all valuables, including medications, at home the day of surgery. If you are going home after surgery, a licensed guard driver must drive you home.? - NO public transportation without another adult if you receive anesthesia. - We recommend that an adult stay with you for 24 hours following discharge. - We also recommend that you do not drive, make important decision, drink alcoholic beverages, or take any drugs that were not prescribed by your health care provider for at least 24 hours after your discharge time. For Pediatric surgeries, we recommend two adults accompany the child home. Follow any additional instructions given to you from your surgeon. Telephone instructions given to __PATIENT_and asked if any additional questions and then verbalized understanding. Patient advised to call surgeon office or pre surgery nurse liaison [phone] if any additional questions.
[2024-06-04] VITALS (10 sets, daily range): BP systolic 106–130; BP diastolic 59–77; PULSE 59–80; RESP 12–16; TEMP 36.1–36.6; O2SAT 95–100
[2024-06-04] MEDS: ACETAMINOPHEN 500 MG TABLET 1000 MG PO (12:00)
[2024-06-04] MEDS: KETOROLAC 15 MG/ML VIAL (*BKC) IV PUSH (12:00)
[2024-06-04] MEDS: LACTATED RINGERS 1,000 ML 30 ML IV CONT ×2 (12:00→15:03)
--- NOTE | 2024-06-04 12:21 | WPDHPUPDATE1 ---
History and Physical Update Update Date/Time: 06/04/24 12:21 History and Physical has been reviewed, including an updated exam of the patient. There are NO changes in the patient's condition. Risks, benefits, and alternatives have been discussed and questions answered. Patient agrees to proceed with procedure.
--- NOTE | 2024-06-04 13:10 | WPDANESEPPF ---
Anes - Initial Pre Proc Eval Procedure: Operation Date: 06/04/24 13:00 Proposed Procedures p Laparoscopic Cholecystectomy, Possible Open - Lauri Ochoa MD Date/Time: 06/04/24 13:10 Surgeon: Lauri Ochoa MD Pre Op Diagnosis: Chr Cholecystitis with Calculous Patient Data Age: 28 Gender: F Height: 1.8 m Weight: 100 kg Allergies Allergy/AdvReac Type Severity Reaction Status Date / Time aloe vera [From Vagisil] AdvReac Intermediate Swelling Verified 05/29/24 11:22 fluconazole [From Diflucan] AdvReac Intermediate Swelling Verified 05/29/24 11:22 mineral oil [From Vagisil] AdvReac Intermediate Swelling Verified 05/29/24 11:22 resorcinol [From Vagisil] AdvReac Intermediate Swelling Verified 05/29/24 11:22 starch [From Vagisil] AdvReac Intermediate Swelling Verified 05/29/24 11:22 vitamin E (d-alpha AdvReac Intermediate Swelling Verified 05/29/24 11:22 tocopherol) [From Vagisil] vitamins A and D AdvReac Intermediate Swelling Verified 05/29/24 11:22 [From Vagisil] Azoles AdvReac Mild Rash Uncoded 05/29/24 11:22 Home Medications Medication Instructions Recorded Confirmed Type vits no.126-ferrous fum 1 tablet PO DAILY 09/09/23 05/29/24 History 28 mg iron-folic acid 800 mcg tablet (Classic ) drospirenone (contraceptive) 4 mg 1 tablet PO DAILY #84 tabs 05/20/24 05/29/24 Rx (28) tablet (Slynd) Patient hx anesthesia problems: none Family hx anesthesia problems: none Results Review: All pre-operative results and documents have been reviewed as part of the pre-operative evaluation. [facility] Past Medical History Medical History No significant past medical history Suppression of menses Surgical History Surgical History Courtenay teeth extracted Family History Family History Father Heart disease Heart attack Mother Crohn disease Other No significant family history Social History Social History Smoking status: Never smoker Alcohol intake: current Alcohol use details: RARE Substance use: never Lack of Transportation: No Lack of Food: Never True Current Housing: I Have Housing Concerned About Future Housing: No Difficulty Paying Gas/Electric Bills: No Difficulty Paying for Meds: No Currently Unemployed: No Education: Bachelor's Degree Difficulty w/ Childcare or Family Care: No Living arrangements: with family Occupation/Education: occupation Gender identity (if verbalized by the patient): Female Spiritual care concerns: No Anes - Eval Final PreProcedure Day of Procedure 06/04/24 13:10 Patient weight: obese Heart: regular rate and rhythm Lungs: clear to auscultation Airway: Mallampati scale class II Neurological: alert and oriented Last oral intake: >/= 8 hours ASA classification: II Emergent: no Anesthetic plan: proceed Anesthesia type and monitoring: general ETT and standard monitoring Results Review: All pre-operative results and documents have been reviewed as part of the pre-operative evaluation. Informed Consent: The patient's anesthetic plan and its attendant risks and benefits were discussed with the patient/family/POA. Questions were solicited and answers provided to the satisfaction of the patient/family/POA.
[2024-06-04] MEDS: ceFAZolin 2 GM/D5W 50 ML 2 GM/50 ML BAG IVPB (13:59)
[2024-06-04 14:01] LABS: BEDSIDEPREGUCG Negative
[2024-06-04] MEDS: BUPIVACAINE/EPINEPHRINE 0.5% 10 ML VIAL 30 ML INFILTRATE (14:32)
--- NOTE | 2024-06-04 15:22 | P.OP_ITS ---
Procedure Note - Detailed Date of Procedure 06/04/24 Pre-op Diagnosis Chronic cholecystitis, cholelithiasis Post-op Diagnosis Same Procedure Performed Laparoscopic cholecystectomy Surgeon Lauri Ochoa MD [employer] [place] Anesthesia General and Local Indications Patient has had right upper quadrant postprandial pain both before she had her baby 6 weeks ago and after. Imaging shows gallstones. She has a strong family history of gallbladder disease as well. She is taken to surgery now for laparoscopic cholecystectomy. Findings Mild chronic inflammation, no biliary ductal dilatation, no stones noted but gallbladder was not opened. Liver appeared normal. Description of Procedure Patient was taken to surgery and induced into general anesthesia. The abdomen is prepped and draped. Trocars were placed in the usual fashion using a varies needle and applied Medical optical trocars. A 5 mm 30 degree camera was used. The gallbladder was distended and was decompressed with a laparoscopic aspirator. A Vicryl endoloop was used to close the cholecystotomy. The gallbladder was retracted anterosuperiorly. Dissection was carried out in the cholecystohepatic triangle. The cystic duct and cystic artery were dissected out very clearly. The gallbladder was dissected off the liver over its lower 3rd. Critical view was achieved. We then securely clipped and divided the cystic duct and cystic artery. The gallbladder was then dissected free of its remaining attachments to the liver. It was then placed in an Endo-Catch bag and retrieved through the 10 11 epigastric trocar site. We replaced the epigastric trocar and reviewed the gallbladder fossa and right upper quadrant. There was no evidence of bile leak or bleeding. We then evacuated CO2 and removed the trocar sleeves. Skin wounds were closed with subcuticular 4-0 Monocryl skin suture. The wounds were dressed with Exofin surgical adhesive. The patient was awakened and taken to recovery in good condition. Sponge and needle counts were correct x2. Estimated Blood Loss -5 Drains No Packing No Pathology Yes (Gallbladder) Complications None Condition Stable Disposition PACU [facility] Billing Surgery - Charge Forward: Surgery Billing (Laparoscopic cholecystectomy)
[2024-06-04] MEDS: fentaNYL CITRATE INJ (*CRX) 100 MCG/2 ML VIAL 25 MCG IV PUSH ×2 (15:32→15:36)
[2024-06-04] MEDS: oxyCODONE HCL (*CRX) 5 MG TAB IR PO (16:12)
== END 2024-06-04 17:03 | disposition home or self-care (01) ==
PROVIDERS: Visit Provider Surgery
PROC: 0FT44ZZ Resection of Gallbladder, Percutaneous Endoscopic Approach (ICD-10-PCS; CPT 47562; principal; 2024-06-04 13:00)
DX: K80.10 Calculus of gallbladder with chronic cholecystitis without obstruction (principal); E66.9 Obesity, unspecified; Z68.30 Body mass index [BMI] 30.0-30.9, adult; Z98.890 Other specified postprocedural states; Z82.49 Family history of ischemic heart disease and other diseases of the circulatory system
CPT/HCPCS: 47562; 36415; 80076; 82150; 83690; 88304; A9270; J0330; J0690; J1100; J1885; J2250; J2405; J3010; J7030; J7120